=== PATIENT | male | born 1960 | race Caucasian/White ===

== ENCOUNTER 2016-11-07 12:11 | Inpatient (IN) | payer OTHER, MEDICAID ==
[2016-11-07 12:43] LABS: % IMMATURE GRANULOCYTES 0.6 % (0.0-1.1); ABSOLUTE IMMATURE GRANULOCYTES 0.09 10^3/uL (0-0.10); HEMOGLOBIN 13.5 g/dL (13.7-17.5); MEAN CELL HEMOGLOBIN 28.7 pg (27.9-34.1); MEAN CELL HEMOGLOBIN CONC. 32.9 g/dL (32.4-36.7); MEAN CELL VOLUME 87.2 fL (81.5-99.8); MEAN PLATELET VOLUME 9.7 fL (8.7-11.7); RED BLOOD CELL COUNT 4.7 10^6/uL (4.40-6.38); RED CELL DISTRIBUTION WIDTH 13.3 % (11.5-15.2)
[2016-11-07 13:09] LABS: ALANINE AMINOTRANSFERASE 120 IU/L (21-72); ALBUMIN 2.9 g/dL (3.5-5.0); ALKALINE PHOSPHATASE 319 IU/L (38-126); ANION GAP 13 mEq/L (8-16); ASPARTATE AMINOTRANSFERASE 74 IU/L (17-59); BILIRUBIN,TOTAL 4.7 mg/dL (0.1-1.4); CALCIUM 8.6 mg/dL (8.5-10.4); CARBON DIOXIDE 26 mEq/l (22-31); CHLORIDE 93 mEq/L (97-110); CREATININE 0.6 mg/dL (0.7-1.3); GLOMERULAR FILTRATION RATE > 60; GLUCOSE 190 mg/dL (70-100); POTASSIUM 4.4 mEq/L (3.5-5.2); SODIUM 132 mEq/L (134-144)
[2016-11-07 13:16] LABS: BILIRUBIN-CONJUGATED 4.1 mg/dL (0.0-0.5); BILIRUBIN-UNCONJUGATED 0.6 mg/dL (0.0-1.1)
[2016-11-07] MEDS ORDERED: ACETAMINOPHEN 325 MG TAB PO PRN (14:05)
[2016-11-07] MEDS ORDERED: ALBUTEROL 3 ML DEYVIAL IH PRN (14:05)
[2016-11-07] MEDS ORDERED: POLYETHYLENE GLYCOL 3350 17 GM PKT PO PRN (14:08)
[2016-11-07] MEDS ORDERED: BISACODYL 10 MG SUPP PR PRN (14:08)
[2016-11-07] MEDS ORDERED: LACTULOSE 20 GM/30 ML UDCUP PO PRN (14:08)
[2016-11-07] MEDS ORDERED: NICOTINE POLACRILEX 2 MG GUM B PRN (14:09)
[2016-11-07] MEDS: oxyCODONE IR 5 MG TAB PO PRN ×3 (14:57→21:20)
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
--- NOTE | 2016-11-07 15:19 | GCON ---
[f rep st] CONSULTATION ONCOLOGY INITIAL VISIT REASON FOR CONSULTATION: Widely metastatic carcinoma of unknown primary, probably upper GI source. HISTORY OF PRESENT ILLNESS: Mr. Jalloh is a 56-year-old gentleman, who was recently diagnosed with an adenocarcinoma from a biopsy on a left supraclavicular lymph node. He has significant omental invol vement, as well as roxana hepatis adenopathy and several nodes in the liver, the largest at 5 cm. He was being set up to start palliative chemotherapy next week when he came into the office with at kaylynas t a 24 hour history of vomiting. While in the office, he was also found to have an elevated alk phos and total bilirubin. He complains of significant abdominal pain. Last emesis was earlier today. H e states it has been about 7-8 hours since his last pain medication and is very uncomfortable. He al so states "I want to get started on treatment so this cancer can be cured and I can get out of here." PAST MEDICAL HISTORY: He is allergic to sulfa. Medications at home include Percocet, Duragesic 25 m cg per hour patch, Senokot, MiraLAX, Protonix, NicoDerm 14 mg, calcium, and acetaminophen as needed. Chronic illnesses include the cancer as described in HPI, otherwise unremarkable. SURGICAL HISTORY: He had a lymph node biopsy. FAMILY HISTORY: No primary family members have history of cancer. SOCIAL HISTORY: He was smoking a pack a day up until his diagnosis last month. He denies alcohol us e. He was not working and essentially homeless, living in a van. REVIEW OF SYSTEMS: Ten-point review of systems performed, pertinent positives per HPI, otherwise neg ative. PHYSICAL EXAM: VITAL SIGNS: Temperature is 36.3, pulse is 96, blood pressure is 144/81. GENERAL: He is a mildly jaundiced man, who is somewhat angry and frustrated because he had not had any pain me dication yet. He will answer a few questions, but is not very verbose. HEENT: Sclerae are mildly i cteric. Oral mucosa is more moist. He did receive a liter of fluids in the office. LUNGS: Clear. CARDIAC: Regular. ABDOMEN: Mildly distended, soft but tender diffusely, particularly in the right upper quadrant. There is a firmness within the abdomen that is palpable. NEURO: Unremarkable. LABS: Mild anemia at 13.5, but white count and platelet count are unremarkable. His chemistries a c ouple weeks ago showed normal LFTs. Today, his bilirubin is up to 4.7. AST and ALT are 74 and 120, and alk phos is up to 319 from 79. He had a previous CEA, CA 19-9, and PSA and AFP, all of which wer e normal. IMPRESSION: 1. Widely metastatic carcinoma of unknown primary, possibly gastrointestinal source. 2. Biliary outlet obstruction. 3. Nausea and vomiting. RECOMMENDATIONS: I agree with starting hydration and pain control, and getting an ultrasound of his liver to see if there is something that can be easily fixed. If he significantly improves over the n ext couple days, we could consider initiating chemotherapy to see if he can get some palliation. I e xplained to him that his cancer was NOT curable. I explained to him that the best we can do with rosa atment is to slow the growth of cancer, perhaps shrink it a little bit, and give him some pain relief which also may help him live a little bit longer. At this point, he did not really want to walk muc h about the cancer. I will follow along with you while he is in the hospital and will continue to have these discussions. It would not be unreasonable to get a Palliative Care consult while he is here. /[id number]/MODL
[2016-11-07] MEDS: fentaNYL 25 MCG PATCH TD SCH (15:35)
[2016-11-07] MEDS: NICOTINE 14 MG/24 HR PATCH TD SCH (15:36)
--- NOTE | 2016-11-07 15:42 | DX ---
Acute Abdominal Series November 07, 2016, at 3:02 p.m. Clinical History: 56-year-old male with metastatic adenocarcinoma of unknown primary, complaining of epigastric abdominal pain and some distention. Comparison Studies: CT imaging of the abdomen and pelvis and chest radiography, dated October 26. Findings: Upright PA View of the Chest: The patient's head is slightly tilted to the right, likely explaining t he positioning of the trachea. The cardiomediastinal silhouette is normal in size. There is some mild central perihilar bronchial wall thickening, and the lungs are hyperexpanded, which may reflect unde rlying COPD. There has been development of some diskoid subsegmental atelectasis at the right lung ba se. There is a right-sided PICC line, which terminates at the right subclavian/innominate junction. T here is no pleural effusion, peripheral interstitial edema, or pneumothorax. Abdomen (Four Views): There is air and fecal material in the ascending, transverse, descending, and r ectosigmoid portions of the colon. There may be some mild haustral thickening associated with portion s of the transverse colon. There is no free air or apparent organomegaly. A mild biphasic thoracolumb ar curvature is seen. There is a small oval-shaped calcific opacity projected over the right of midli ne at the sacrococcygeal junction, not apparent on the previous CT scan, perhaps representing an lashae sted pill (although otherwise nonspecific). Impression: 1. Moderate constipation/obstipation. A mild degree of associated haustral inflammatory thickening is suspected. 2. Diskoid subsegmental atelectasis at the right lung base.
[2016-11-07 16:34] LABS: COLOR AMBER; LEUKOCYTE ESTERASE,URINE 1+ (NEGATIVE); NITRITE,URINE NEGATIVE (NEGATIVE)
[2016-11-07 16:41] LABS: MUCUS 3+ /lpf (NONE-1+); WBC,URINE 25-50 /hpf (0-3)
[2016-11-07] MEDS: HYDROmorphONE/DILAUDID 1 MG/ML SYR IVP PRN (17:11)
--- NOTE | 2016-11-07 18:32 | US ---
Right Upper Quadrant Sonogram (Limited Abdominal) Clinical Indications: New elevated liver function tests, known metastatic hepatic and portacaval and portal ena disease from colon cancer Comparison: CT October 26, 2016 Findings: There is new mild intrahepatic biliary dilatation in the right lobe of the liver. There ap pears to be sludge in the common duct which is at the upper limits of normal and measures 7 mm. We co uld not define the portacaval ena mass due to the patient's large size and bowel gas. The patient's left hepatic lobe liver metastasis is little if at all changed since the prior CT, measuring 6 x 4.8 cm compared to prior 5 x 4.3 cm. No new liver metastases are identified. There is a new ascites. The right kidney is nonobstructed. The portal vein and hepatic veins remain patent. Impression: 1. New intrahepatic biliary dilatation with sludge in the common duct. My suspicion is t hat this is related to extrinsic compression from the patient's portacaval and portal adenopathy. Thi s patient might benefit from ERCP with common ductal stent placement. 2. New ascites of undetermined etiology.
[2016-11-07] MEDS: ONDANSETRON DISINTEGRATING 4 MG TAB PO PRN (20:29)
[2016-11-07] MEDS: PANTOPRAZOLE SODIUM 40 MG TAB PO SCH (21:20)
[2016-11-07] MEDS: SENNOSIDES/DOCUSATE SODIUM TAB PO SCH (21:20)
[2016-11-07] MEDS ORDERED: CALCIUM CARBONATE 500 MG CHEWABLE TAB PO PRN (22:36)
[2016-11-08] MEDS: oxyCODONE IR 5 MG TAB PO PRN ×8 (00:52→20:53)
[2016-11-08 05:31] LABS: % IMMATURE GRANULYOCYTES 0.6 % (0.0-1.1); ABSOLUTE IMMATURE GRANULOCYTES 0.08 10^3/uL (0.00-0.10); ADD DIFF? NO; ADD MORPH? NO; ADD SCAN? NO; ATYPICAL LYMPHOCYTE FLAG 10 (0-99); FRAGMENT RBC FLAG 0 (0-99); HEMATOCRIT 37.2 % (40.0-51.0); HEMOGLOBIN 12.4 g/dL (13.7-17.5); LEFT SHIFT FLG 0 (0-99); LIPEMIA HEMOLYSIS FLAG 80 (0-99); MEAN CELL HEMOGLOBIN 28.6 pg (27.9-34.1); MEAN CELL HEMOGLOBIN CONCENTR. 33.3 g/dL (32.4-36.7); MEAN CELL VOLUME 85.9 fL (81.5-99.8); MEAN PLATELET VOLUME 9.7 fL (8.7-11.7); PLATELET CLUMPS FLAG 10 (0-99); PLATELET COUNT 361 10^3/uL (150-400); RED BLOOD CELL COUNT 4.33 10^6/uL (4.40-6.38); RED CELL DISTRIBUTION WIDTH 13.4 % (11.5-15.2)
[2016-11-08 06:05] LABS: CALCIUM 8.1 mg/dL (8.5-10.4); CARBON DIOXIDE 29 mEq/l (22-31); CHLORIDE 95 mEq/L (97-110); CREATININE 0.5 mg/dL (0.7-1.3); GLOMERULAR FILTRATION RATE > 60; GLUCOSE 103 mg/dL (70-100); MAGNESIUM 1.9 mg/dL (1.6-2.3); SODIUM 130 mEq/L (134-144)
[2016-11-08 06:11] LABS: ANION GAP 6 mEq/L (8-16); POTASSIUM 4.6 mEq/L (3.5-5.2)
[2016-11-08] MEDS: PANTOPRAZOLE SODIUM 40 MG TAB PO SCH ×2 (10:31→20:55)
[2016-11-08] MEDS: SENNOSIDES/DOCUSATE SODIUM TAB PO SCH ×2 (10:31→20:55)
[2016-11-08] MEDS: ENOXAPARIN 40 MG/0.4 ML SYR SC SCH (10:32)
[2016-11-08] MEDS: NICOTINE 14 MG/24 HR PATCH TD SCH (10:32)
[2016-11-08 10:43] LABS: ALBUMIN 2.5 g/dL (3.5-5.0); BILIRUBIN,TOTAL 4.8 mg/dL (0.1-1.4); BILIRUBIN-CONJUGATED 4.1 mg/dL (0.0-0.5); BILIRUBIN-UNCONJUGATED 0.7 mg/dL (0.0-1.1); TOTAL PROTEIN 5.3 g/dL (6.3-8.2)
[2016-11-08] MEDS ORDERED: MAGNESIUM HYDROXIDE 30 ML UDCUP PO PRN (11:11)
[2016-11-08] MEDS: ONDANSETRON 4 MG/2 ML VIAL IVP PRN (11:33)
--- NOTE | 2016-11-08 13:49 | SOAPPROG ---
SOAP Progress Note Assessment/Plan: E&M for carcinomatosis * Metastatic carcinomatosis probably upper GI source: unable to start chemo with liver obstruction; chemo not curative and patient isn't sure he wants to go that route. * Elevated bili and alk phos: biliary obs most likely due to milly-portal lymphadenopathy related to cancer; only able to alleviate with either drain or stent. * Disposition: recommended palliative care consult. Patient is a borderline candidate for chemotherapy which will be palliative at best. His cancer is aggressive so may be best to pursue a comfort measure only approach. Objective: Vital Signs Temp Pulse Resp BP Pulse Ox 36.7 C 78 18 142/85 H 93 11/08/16 05:59 11/08/16 08:00 11/08/16 08:00 11/08/16 08:00 11/08/16 08:00 Laboratory Results 11/08/16 05:21 11/08/16 05:21 11/07/16 11/08/16 11/09/16 05:59 05:59 05:59 Intake Total 3050 Output Total 700 Balance 2350 Laboratory Tests 11/07/16 11/08/16 12:33 05:21 Total Bilirubin 4.7 H 4.8 H Alkaline Phosphatase 319 H 300 H Right Upper Quadrant Sonogram (Limited Abdominal) Impression: 1. New intrahepatic biliary dilatation with sludge in the common duct. My suspicion is that this is related to extrinsic compression from the patient's portacaval and portal adenopathy. This patient might benefit from ERCP with common ductal stent placement. 2. New ascites of undetermined etiology. Dictated By: Juan Jose Longoria MD Physical Exam - Physical Exam General Appearance: no apparent distress EENT: scleral icterus (R), scleral icterus (L) Abdomen: No non-tender ICD10 Worksheet Patient Problems: Problems Problem Status Diagnosed Abdominal pain Acute Carcinomatosis Acute
--- NOTE | 2016-11-08 16:03 | HOSPPROG ---
Hospitalist Progress Note Assessment/Plan: 56 yo M with recent diagnosis of poorly differentiated adenocarcinoma of unknown primary presenting with biliary obstruction and abominal pain # biliary obstruction: due to external compression from cancer mets and LAD, discussed with patient whether he would like to pursue aggressive mgmt that would include biliary stent, as next, he is not sure at this time. Monitoring LFTs for now. Consider ERCP and stenting but not urgent at this point # metastatic adenocarcinoma: with unknown primary but likely upper GI source, could not do chemo at this time given above. Options are for chemo and ercp as above versus hospice care, discussed at length with patient. Unclear what he wants to do at this point, he wants to discuss with diabetes clinical manager or lumber loader. palliative involved, will get spiritual care involved. # abdominal pain: due to diffuse metastatic disease, also has ascites contributing, continue pain meds as needed # szad: patient intermittently fairly agitated and confrontational, prn ativan/ haldol # hyponatremia: ? hypervolemic hyponatremia in setting of ascites etc # dispo: IP status, will need > 48 hours given complicated decision making Reviewed care plan with palliative care, GI, oncology, CM. Subjective: no significant overnight events, patient still with pain, moderately controlled on current regimen, intermittently agitated Objective: Vital Signs Temp Pulse Resp BP Pulse Ox 36.7 C 78 18 142/85 H 93 11/08/16 05:59 11/08/16 08:00 11/08/16 08:00 11/08/16 08:00 11/08/16 08:00 Laboratory Results 11/08/16 05:21 11/08/16 05:21 11/07/16 11/08/16 11/09/16 05:59 05:59 05:59 Intake Total 3050 Output Total 700 Balance 2350 awake alert nad anicteric op clear rrr no mrg cta b distended, ttp diffusely, + bs no cc ble edema warm dry well perfused oriented intermittently agitated - Time Spent With Patient Time Spent with Patient: greater than 35 minutes Time Spent with Patient: Greater than 35 minutes spent on this patients care, greater than 50% of time spent counseling, educating, and coordinating care regarding the above mentioned plan. ICD10 Worksheet Patient Problems: Problems Problem Status Diagnosed Abdominal pain Acute Carcinomatosis Acute
[2016-11-08] MEDS: LORazepam 2 MG/ML INJ IVP PRN (20:56)
[2016-11-08] MEDS: NS 1,000 ML IV SCH (20:56)
[2016-11-09] MEDS: oxyCODONE IR 5 MG TAB PO PRN ×5 (00:08→20:55)
[2016-11-09] MEDS: NS 1,000 ML IV SCH ×3 (04:32→20:56)
[2016-11-09 05:05] LABS: % IMMATURE GRANULYOCYTES 0.6 % (0.0-1.1); ABSOLUTE IMMATURE GRANULOCYTES 0.09 10^3/uL (0.00-0.10); ADD DIFF? NO; ADD MORPH? NO; ADD SCAN? NO; ATYPICAL LYMPHOCYTE FLAG 0 (0-99); FRAGMENT RBC FLAG 0 (0-99); HEMATOCRIT 37.4 % (40.0-51.0); HEMOGLOBIN 12.4 g/dL (13.7-17.5); LEFT SHIFT FLG 0 (0-99); LIPEMIA HEMOLYSIS FLAG 80 (0-99); MEAN CELL HEMOGLOBIN 28.8 pg (27.9-34.1); MEAN CELL HEMOGLOBIN CONCENTR. 33.2 g/dL (32.4-36.7); MEAN CELL VOLUME 86.8 fL (81.5-99.8); MEAN PLATELET VOLUME 9.8 fL (8.7-11.7); PLATELET CLUMPS FLAG 0 (0-99); PLATELET COUNT 379 10^3/uL (150-400); RED BLOOD CELL COUNT 4.31 10^6/uL (4.40-6.38); RED CELL DISTRIBUTION WIDTH 13.7 % (11.5-15.2)
[2016-11-09 05:32] LABS: ALANINE AMINOTRANSFERASE 83 IU/L (21-72); ALBUMIN 2.4 g/dL (3.5-5.0); ALKALINE PHOSPHATASE 299 IU/L (38-126); ANION GAP 9 mEq/L (8-16); ASPARTATE AMINOTRANSFERASE 67 IU/L (17-59); BILIRUBIN,TOTAL 6.4 mg/dL (0.1-1.4); CALCIUM 8.4 mg/dL (8.5-10.4); CARBON DIOXIDE 26 mEq/l (22-31); CHLORIDE 96 mEq/L (97-110); CREATININE 0.5 mg/dL (0.7-1.3); GLOMERULAR FILTRATION RATE > 60; GLUCOSE 105 mg/dL (70-100); POTASSIUM 4.4 mEq/L (3.5-5.2); SODIUM 131 mEq/L (134-144); TOTAL PROTEIN 5.3 g/dL (6.3-8.2)
[2016-11-09 05:39] LABS: BILIRUBIN-CONJUGATED 5.4 mg/dL (0.0-0.5)
[2016-11-09] MEDS: NICOTINE 14 MG/24 HR PATCH TD SCH (09:56)
[2016-11-09] MEDS: ASPIRIN EC 81 MG TAB PO SCH (09:59)
[2016-11-09] MEDS: ASCORBIC ACID 500 MG TAB PO SCH (09:59)
[2016-11-09] MEDS: PANTOPRAZOLE SODIUM 40 MG TAB PO SCH ×2 (09:59→20:55)
[2016-11-09] MEDS: SENNOSIDES/DOCUSATE SODIUM TAB PO SCH ×2 (09:59→20:56)
[2016-11-09] MEDS: ENOXAPARIN 40 MG/0.4 ML SYR SC SCH (10:00)
[2016-11-09] MEDS ORDERED: OLANZapine DISINTEGR 5 MG TAB PO ONE (10:48)
--- NOTE | 2016-11-09 13:57 | SOAPPROG ---
SOAP Progress Note Assessment/Plan: Assessment: E&M for carcinomatosis * Metastatic carcinomatosis probably upper GI source: unable to start chemo with liver obstruction; chemo not curative and patient isn't sure he wants to go that route. * Elevated bili and alk phos: biliary obs most likely due to milly-portal lymphadenopathy related to cancer; only able to alleviate with either drain or stent. * Disposition: recommended palliative care consult. Patient is a borderline candidate for chemotherapy which will be palliative at best. His cancer is aggressive so may be best to pursue a comfort measure only approach. Plan:Again discussed situation with pt, he is tangential and remains undecided about his preferred course of action 11/09/16 13:56 Objective: Vital Signs Temp Pulse Resp BP Pulse Ox 98.6 F 87 18 141/77 H 92 11/09/16 08:22 11/09/16 08:22 11/09/16 08:22 11/09/16 08:22 11/09/16 08:22 Laboratory Results 11/09/16 04:42 11/09/16 04:42 11/08/16 11/09/16 11/10/16 05:59 05:59 05:59 Intake Total 3050 2700 Output Total 700 700 Balance 2350 1999 ICD10 Worksheet Patient Problems: Problems Problem Status Diagnosed Abdominal pain Acute Carcinomatosis Acute
--- NOTE | 2016-11-09 14:11 | HOSPPROG ---
Hospitalist Progress Note Assessment/Plan: 56 yo M with recent diagnosis of poorly differentiated adenocarcinoma of unknown primary presenting with biliary obstruction and abominal pain # biliary obstruction: due to external compression from cancer mets and LAD, discussed with patient whether he would like to pursue aggressive mgmt that would include biliary stent, as next, LFTs continue to increase. At this time, unclear if he would like to pursue aggressive mgmt and stenting etc, holding off at this time. # metastatic adenocarcinoma: with unknown primary but likely upper GI source, could not do chemo at this time given above. Again, unclear if biliary stent and chemo versus hospice. Patient discussing with his family and chaplains. # abdominal pain: due to diffuse metastatic disease, also has ascites contributing, continue pain meds as needed # szad: patient intermittently fairly agitated and confrontational, prn ativan/ haldol # hyponatremia: ? hypervolemic hyponatremia in setting of ascites etc # dispo: IP status, will need > 48 hours given complicated decision making Reviewed care plan with Chemical Handler--apparently patient has a fixed delusion that he has a daughter and wants to reach her. He is talking about "getting right with God" in the time that he has left. Subjective: no significant overnight events, patient again asking to see a disassembler, pain is under better control Objective: Vital Signs Temp Pulse Resp BP Pulse Ox 37 C 87 18 141/77 H 92 11/09/16 08:22 11/09/16 08:22 11/09/16 08:22 11/09/16 08:22 11/09/16 08:22 Laboratory Results 11/09/16 04:42 11/09/16 04:42 11/08/16 11/09/16 11/10/16 05:59 05:59 05:59 Intake Total 3050 2700 Output Total 700 700 Balance 2350 2000 awake alert nad anicteric op clear rrr no mrg cta b distended, ttp diffusely, + bs no cc ble edema warm dry well perfused oriented intermittently agitated ICD10 Worksheet Patient Problems: Problems Problem Status Diagnosed Abdominal pain Acute Carcinomatosis Acute
[2016-11-09] MEDS ORDERED: OLANZapine DISINTEGR 5 MG TAB ONE (16:30)
[2016-11-09] MEDS: LORazepam 2 MG/ML INJ IVP PRN (22:47)
[2016-11-10] MEDS: NS 1,000 ML IV SCH ×2 (03:49→20:26)
[2016-11-10] MEDS: oxyCODONE IR 5 MG TAB PO PRN ×4 (03:49→23:47)
[2016-11-10] MEDS: HYDROmorphONE/DILAUDID 1 MG/ML SYR IVP PRN (10:55)
[2016-11-10] MEDS: SENNOSIDES/DOCUSATE SODIUM TAB PO SCH ×2 (11:12→20:26)
[2016-11-10] MEDS: LORazepam 2 MG/ML INJ IVP PRN ×3 (11:12→20:27)
[2016-11-10] MEDS: ASCORBIC ACID 500 MG TAB PO SCH ×2 (11:13→11:30)
[2016-11-10] MEDS: PANTOPRAZOLE SODIUM 40 MG TAB PO SCH ×2 (11:14→20:26)
[2016-11-10] MEDS: ASPIRIN EC 81 MG TAB PO SCH (11:21)
[2016-11-10] MEDS: ENOXAPARIN 40 MG/0.4 ML SYR SC SCH (11:23)
[2016-11-10] MEDS: NICOTINE 14 MG/24 HR PATCH TD SCH (11:24)
--- NOTE | 2016-11-10 12:04 | SOAPPROG ---
SOMATTEO Progress Note Assessment/Plan: Assessment: E&M for carcinomatosis * Metastatic carcinomatosis probably upper GI source: unable to start chemo with liver obstruction; chemo not curative and patient isn't sure he wants to go that route.Increasing abdominal distension probably from ascites * Elevated bili and alk phos: biliary obs most likely due to milly-portal lymphadenopathy related to cancer; only able to alleviate with either drain or stent. * Disposition: recommended palliative care consult. Patient is a borderline candidate for chemotherapy which will be palliative at best. His cancer is aggressive so may be best to pursue a comfort measure only approach. Plan:Again discussed situation with pt, he is tangential and remains undecided about his preferred course of action. His abdomen is uncomfortable and will check u/s and do therapeutic para if indicated. Will d/c okaes at his request 11/09/16 13:56 11/10/16 12:00 Subjective: C/O increasing abdominal distension Objective: Vital Signs Temp Pulse Resp BP Pulse Ox 98.6 F 85 16 129/69 H 92 11/10/16 08:23 11/10/16 08:23 11/10/16 08:23 11/10/16 08:23 11/10/16 08:23 Microbiology 11/07/16 16:37 Urine Culture - Final Urine,Clean Catch Five Or More [place] Types Laboratory Results 11/09/16 04:42 11/09/16 04:42 11/09/16 11/10/16 11/11/16 05:59 05:59 05:59 Intake Total 2700 4227 Output Total 700 750 Balance 1999 3477 Physical Exam - Physical Exam General Appearance: mild distress Respiratory: lungs clear Cardiac/Chest: regular rate, rhythm Abdomen: ascites ICD10 Worksheet Patient Problems: Problems Problem Status Diagnosed Abdominal pain Acute Carcinomatosis Acute
[2016-11-10] MEDS ORDERED: LIDOCAINE 1% 30 ML SDV ONE (13:15)
[2016-11-10] MEDS ORDERED: NA BICARBONATE 50 MEQ/50 ML VIAL ONE (13:16)
--- NOTE | 2016-11-10 13:38 | HOSPPROG ---
Hospitalist Progress Note Assessment/Plan: 56 yo M with recent diagnosis of poorly differentiated adenocarcinoma of unknown primary presenting with biliary obstruction and abominal pain # biliary obstruction: due to external compression from cancer mets and LAD. Case reviewed with Dr. Sanabria. Unfortunately this man has a aggressive cancer and chemotherapy would be palliative at best. The patient himself is unclear whether he wants to pursue treatment at this time. * Palliative care consult * Palliative paracentesis * Will need to pursue patient competency given his likely schizophrenia and ability to make appropriate healthcare decisions for himself. * Will get ethics consult this week. # metastatic adenocarcinoma: with unknown primary but likely upper GI source, could not do chemo at this time given above. Again, unclear if biliary stent and chemo versus hospice. Patient discussing with his family and chaplains. # abdominal pain: due to diffuse metastatic disease, also has ascites contributing, continue pain meds as needed * Paracentesis * Pain control # schizoaffective disorder: Patient often times not appropriate and has delusions involving a and children who do not exist. This is a long- standing delusion per family. It is unclear whether he is competent to make his decisions at this time. * Ethics consult # hyponatremia: Will follow, mild # dispo: IP status, will need > 48 hours given complicated decision making Subjective: [place] reviewed discussed with Dr. Sanabria. Very sleepy complaining of abdominal pain Objective: Vital Signs Temp Pulse Resp BP Pulse Ox 37.0 C 85 16 129/69 H 92 11/10/16 08:23 11/10/16 08:23 11/10/16 08:23 11/10/16 08:23 11/10/16 08:23 Microbiology 11/07/16 16:37 Urine Culture - Final Urine,Clean Catch Five Or More [place] Types 11/09/16 11/10/16 11/11/16 05:59 05:59 05:59 Intake Total 2700 4227 Output Total 700 750 Balance 1999 3477 - Physical Exam Constitutional: chronically ill appearing, uncomfortable Eyes: icteric sclera Ears, Nose, Mouth, Throat: dry mucous membranes Cardiovascular: regular rate and rhythym Respiratory: no respiratory distress, no rales or rhonchi, clear to auscultation Gastrointestinal: ascites, distension, No normoactive bowel sounds (Decrease) Genitourinary: no bladder fullness Skin: warm, No normal color Musculoskeletal: no joint effusions Neurologic: No AAOx3 Psychiatric: flat affect, poor judgement, No thought process linear ICD10 Worksheet Patient Problems: Problems Problem Status Diagnosed Abdominal pain Acute Carcinomatosis Acute
[2016-11-10 13:41] LABS: % IMMATURE GRANULYOCYTES 0.6 % (0.0-1.1); ADD DIFF? NO; ADD MORPH? NO; ADD SCAN? NO; ATYPICAL LYMPHOCYTE FLAG 0 (0-99); FRAGMENT RBC FLAG 0 (0-99); HEMATOCRIT 39.5 % (40.0-51.0); HEMOGLOBIN 13.2 g/dL (13.7-17.5); LEFT SHIFT FLG 0 (0-99); LIPEMIA HEMOLYSIS FLAG 80 (0-99); MEAN CELL HEMOGLOBIN 28.8 pg (27.9-34.1); MEAN CELL HEMOGLOBIN CONCENTR. 33.4 g/dL (32.4-36.7); MEAN CELL VOLUME 86.2 fL (81.5-99.8); MEAN PLATELET VOLUME 9.8 fL (8.7-11.7); PLATELET CLUMPS FLAG 0 (0-99); PLATELET COUNT 445 10^3/uL (150-400); RED BLOOD CELL COUNT 4.58 10^6/uL (4.40-6.38); RED CELL DISTRIBUTION WIDTH 14.1 % (11.5-15.2)
[2016-11-10 13:44] LABS: APTT 23.7 SEC (23.0-38.0); INR 1.14 (0.83-1.16); PROTIME(PATIENT) 14.5 SEC (12.0-15.0)
[2016-11-10 14:14] LABS: ALANINE AMINOTRANSFERASE 75 IU/L (21-72); ALBUMIN 2.5 g/dL (3.5-5.0); ALKALINE PHOSPHATASE 347 IU/L (38-126); ANION GAP 10 mEq/L (8-16); ASPARTATE AMINOTRANSFERASE 84 IU/L (17-59); BILIRUBIN,TOTAL 7.6 mg/dL (0.1-1.4); CALCIUM 8.5 mg/dL (8.5-10.4); CARBON DIOXIDE 26 mEq/l (22-31); CHLORIDE 98 mEq/L (97-110); CREATININE 0.5 mg/dL (0.7-1.3); GLOMERULAR FILTRATION RATE > 60; GLUCOSE 122 mg/dL (70-100); POTASSIUM 4.8 mEq/L (3.5-5.2); SODIUM 134 mEq/L (134-144); TOTAL PROTEIN 5.6 g/dL (6.3-8.2)
[2016-11-10 14:21] LABS: BILIRUBIN-CONJUGATED 6.5 mg/dL (0.0-0.5); BILIRUBIN-UNCONJUGATED 1.1 mg/dL (0.0-1.1)
--- NOTE | 2016-11-10 16:06 | US ---
Ultrasound-Guided Abdominal Paracentesis History: Metastatic colon cancer. Abdominal discomfort. Consent: Risks and benefits of the procedure were discussed in detail. Informed consent was obtained . Technique: The right side of the abdomen was prepped and draped in sterile fashion after sonographic localization of largest focus of ascites. 1% Xylocaine was used for local anesthetic. After a skin ni ck with a scalpel, a 6-[place] multi-sidehole pigtail drainage tube was inserted in trocar fashion int o the abdominal cavity. 5.4 liters of turbid greenish-brown fluid were evacuated. 1.1 liters were sen t to the laboratory for multiple tests. Sterile dressing was applied. The patient tolerated the proce dure well and was returned to his room in stable condition. Findings: Large amount of ascites is evacuated. Impression: Ultrasound-guided abdominal paracentesis of 5.4 liters of turbid fluid. - - - - - - - - - - - - - - - - - - - - - - - - - - - - - - - - - - - - - - - - - - - - (PQRS Measures: Current medications were listed in the medical record, including all known prescript ions, [id number] medications, herbal medications, and nutritional supplements. Tobacco Use: Non e. Prophylactic antibiotic: Unnecessary. VTE prophylaxis: Unnecessary .) IR Call
[2016-11-10] MEDS: fentaNYL 25 MCG PATCH TD SCH (16:32)
[2016-11-10 16:40] LABS: BODY FLUID CELL COUNT PERITONEAL FLUID; BODY FLUID GLUCOSE PERITONEAL FLUID
[2016-11-10 17:38] LABS: GLUCOSE, PERITONEAL FLUID 64 mg/dL (55-113)
[2016-11-11] MEDS: oxyCODONE IR 5 MG TAB PO PRN ×3 (05:33→19:45)
[2016-11-11 05:58] LABS: % IMMATURE GRANULYOCYTES 0.8 % (0.0-1.1); ABSOLUTE IMMATURE GRANULOCYTES 0.12 10^3/uL (0.00-0.10); ADD DIFF? NO; ADD MORPH? NO; ADD SCAN? NO; ATYPICAL LYMPHOCYTE FLAG 0 (0-99); FRAGMENT RBC FLAG 0 (0-99); HEMATOCRIT 38.2 % (40.0-51.0); HEMOGLOBIN 12.8 g/dL (13.7-17.5); LEFT SHIFT FLG 0 (0-99); LIPEMIA HEMOLYSIS FLAG 80 (0-99); MEAN CELL HEMOGLOBIN 28.8 pg (27.9-34.1); MEAN CELL HEMOGLOBIN CONCENTR. 33.5 g/dL (32.4-36.7); MEAN CELL VOLUME 85.8 fL (81.5-99.8); MEAN PLATELET VOLUME 9.9 fL (8.7-11.7); PLATELET CLUMPS FLAG 10 (0-99); PLATELET COUNT 417 10^3/uL (150-400); RED BLOOD CELL COUNT 4.45 10^6/uL (4.40-6.38); RED CELL DISTRIBUTION WIDTH 14.4 % (11.5-15.2)
[2016-11-11 06:06] LABS: ALANINE AMINOTRANSFERASE 65 IU/L (21-72); ALBUMIN 2.2 g/dL (3.5-5.0); ALKALINE PHOSPHATASE 290 IU/L (38-126); ANION GAP 5 mEq/L (8-16); ASPARTATE AMINOTRANSFERASE 82 IU/L (17-59); BILIRUBIN,TOTAL 6.8 mg/dL (0.1-1.4); CALCIUM 7.8 mg/dL (8.5-10.4); CARBON DIOXIDE 26 mEq/l (22-31); CHLORIDE 99 mEq/L (97-110); CREATININE 0.5 mg/dL (0.7-1.3); GLOMERULAR FILTRATION RATE > 60; GLUCOSE 103 mg/dL (70-100); POTASSIUM 4.6 mEq/L (3.5-5.2); SODIUM 130 mEq/L (134-144); TOTAL PROTEIN 4.8 g/dL (6.3-8.2)
[2016-11-11 06:13] LABS: BILIRUBIN-CONJUGATED 5.8 mg/dL (0.0-0.5)
[2016-11-11] MEDS: PANTOPRAZOLE SODIUM 40 MG TAB PO SCH ×2 (09:47→20:31)
[2016-11-11] MEDS: ASCORBIC ACID 500 MG TAB PO SCH (09:47)
[2016-11-11] MEDS: SENNOSIDES/DOCUSATE SODIUM TAB PO SCH ×2 (09:47→20:30)
[2016-11-11] MEDS: ASPIRIN EC 81 MG TAB PO SCH (09:48)
[2016-11-11] MEDS: ENOXAPARIN 40 MG/0.4 ML SYR SC SCH (09:48)
[2016-11-11] MEDS: NICOTINE 14 MG/24 HR PATCH TD SCH (10:05)
--- NOTE | 2016-11-11 12:15 | HOSPPROG ---
Hospitalist Progress Note Assessment/Plan: 56 yo M with recent diagnosis of poorly differentiated adenocarcinoma of unknown primary presenting with biliary obstruction and abominal pain # biliary obstruction: due to external compression from cancer mets and LAD. Unfortunately this man has a aggressive cancer and chemotherapy would be palliative at best. The patient himself is unclear whether he wants to pursue treatment at this time. * Palliative care consult * Palliative paracentesis * Will need to pursue patient competency given his likely schizophrenia and ability to make appropriate healthcare decisions for himself. * Will get ethics consult this week. # SBP: Pt with high neutrophil count in ascites (<250). Will treat for 7 days. * Watch for clinical improvement (decreased pain and WBC), if no improvement will retap and if WBC in ascites still high would need to change antibiotics and consider ct to look for perf. # metastatic adenocarcinoma: with unknown primary but likely upper GI source, could not do chemo at this time given above. Again, unclear if biliary stent and chemo versus hospice. Patient discussing with his family and chaplains. # abdominal pain: due to diffuse metastatic disease, also has ascites contributing, continue pain meds as needed * Paracentesis * Pain control # schizoaffective disorder: Patient often times not appropriate and has delusions involving a and children who do not exist. This is a long- standing delusion per family. It is unclear whether he is competent to make his decisions at this time. * Ethics consult # hyponatremia: Will follow, mild # dispo: IP status, will need > 48 hours given complicated decision making Subjective: More alert today. Complains of ongoing abdominal pain but seems better today. Wants take his medications Objective: Vital Signs Temp Pulse Resp BP Pulse Ox 36.9 C 93 18 141/93 H 90 L 11/11/16 09:35 11/11/16 09:35 11/11/16 09:35 11/11/16 09:35 11/11/16 09:42 Microbiology 11/10/16 10:56 Gram Stain - Final Peritoneal Fluid - Aspirate Laboratory Results 11/11/16 05:30 11/11/16 05:30 11/10/16 11/11/16 11/12/16 05:59 05:59 05:59 Intake Total 4227 2350 500 Output Total 750 6750 300 Balance 3477 -4400 200 PT 14.5 SEC (12.0-15.0) 11/10/16 13:24 INR 1.14 (0.83-1.16) 11/10/16 13:24 - Physical Exam Constitutional: chronically ill appearing, uncomfortable Eyes: PERRL Ears, Nose, Mouth, Throat: moist mucous membranes Cardiovascular: regular rate and rhythym, no murmur, rub, or gallop Respiratory: no respiratory distress, no rales or rhonchi, reduced air movement Gastrointestinal: normoactive bowel sounds, tenderness (Lower abdomen), distension Genitourinary: No oakes in urethra Skin: warm, No normal color Musculoskeletal: no joint effusions Neurologic: No AAOx3 Psychiatric: poor insight, other (Delusional), No thought process linear ICD10 Worksheet Patient Problems: Problems Problem Status Diagnosed Abdominal pain Acute Carcinomatosis Acute
--- NOTE | 2016-11-11 14:49 | SOAPPROG ---
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 2.) Ascites cell count to suggest SBP- has been started on IV antibiotic therapy x 7 days. 3.) Obstructive jaundice due to disease involvement at [place]. 4.) Palliative care planning: With poor prognosis disease, peritonitis, and obstructive jaundice, the options for beneficial treatment are quite limited. It would be best to approach this from placement with palliative care planning, as is feasible given his Mental Health Dx/ sx. Plan: 1.) Work up and Tx noted. 2.) Our service will follow intermittently. 11/11/16 14:44 Subjective: More comfortable after large volume paracentesis yesterday. No new sx. Objective: As noted here, VSS,afebrile Pt lying flat in bed with NC oxygen in NAD. Mildly icteric and jaundiced. No oral thrush. Ascites is (+). Vital Signs Temp Pulse Resp BP Pulse Ox 36.9 C 93 18 141/93 H 90 L 11/11/16 09:35 11/11/16 09:35 11/11/16 09:35 11/11/16 09:35 11/11/16 09:42 Microbiology 11/10/16 10:56 Gram Stain - Final Peritoneal Fluid - Aspirate Laboratory Results 11/11/16 05:30 11/11/16 05:30 11/10/16 11/11/16 11/12/16 05:59 05:59 05:59 Intake Total 4227 2350 500 Output Total 750 6750 300 Balance 3477 -4400 200 PT 14.5 SEC (12.0-15.0) 11/10/16 13:24 INR 1.14 (0.83-1.16) 11/10/16 13:24 ICD10 Worksheet Patient Problems: Problems Problem Status Diagnosed Abdominal pain Acute Carcinomatosis Acute
[2016-11-11] MEDS: NS 1,000 ML IV SCH (18:01)
[2016-11-11] MEDS: LORazepam 2 MG/ML INJ IVP PRN (19:46)
[2016-11-11] MEDS: HALOPERIDOL LACT 5 MG/ML INJ IVP PRN (20:30)
[2016-11-11] MEDS: HYDROmorphONE/DILAUDID 1 MG/ML SYR IVP PRN (20:31)
[2016-11-12] MEDS: NS 1,000 ML IV SCH ×2 (00:25→20:09)
[2016-11-12] MEDS: HYDROmorphONE/DILAUDID 1 MG/ML SYR IVP PRN ×5 (00:30→18:30)
[2016-11-12] MEDS: ONDANSETRON 4 MG/2 ML VIAL IVP PRN (00:30)
[2016-11-12] MEDS: oxyCODONE IR 5 MG TAB PO PRN ×3 (00:35→20:14)
--- NOTE | 2016-11-12 09:22 | SOAPPROG ---
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 2.) Ascites cell count to suggest SBP- has been started on IV antibiotic therapy x 7 days. 3.) Obstructive jaundice due to disease involvement at [place]. 4.) Palliative care planning: With poor prognosis disease, peritonitis, and obstructive jaundice, the options for beneficial treatment are quite limited. It would be best to approach this from placement with palliative care planning, as is feasible given his Mental Health Dx/ sx. Suggest: Placement of temporary, indwelling peritoneal catheter to allow bedside, prn drainage of ascites for palliative sx. relieving purposes. D/W Dr. Aguilar this AM. Consider Hospice consult with perhaps Hospice follow up for end of life care either back at [facility] or at another facility. Pt. was previously homeless and living in his vehicle. Plan: 1.) Work up and Tx noted. 2.) Our service will follow intermittently. 3.) Planning for end of life care, without systemic intervention. No active cancer Tx. planned/intended. 11/12/16 09:17 Subjective: Feels uncomfortable from re-accumulating ascites/ SBP sx. No emesis. Objective: VSS, afebrile, as noted here HEENT- no oral lesions, mildly icteric Neck- supple Chest- clear ant. CVS- RSR, no extra HS ABD- BS+, tight with ascites on exam. No rebound EXT- skin intact, chronic increased pigmentation LLE Labs - 11/11/16 noted here: Vital Signs Temp Pulse Resp BP Pulse Ox 36.8 C 88 18 137/70 H 91 L 11/12/16 07:54 11/12/16 07:54 11/12/16 07:54 11/12/16 07:54 11/12/16 07:54 Microbiology 11/10/16 10:56 Gram Stain - Final Peritoneal Fluid - Aspirate Laboratory Results 11/11/16 05:30 11/11/16 05:30 11/11/16 11/12/16 11/13/16 05:59 05:59 05:59 Intake Total 2350 2400 Output Total 6750 725 150 Balance -4400 1675 -150 PT 14.5 SEC (12.0-15.0) 11/10/16 13:24 INR 1.14 (0.83-1.16) 11/10/16 13:24 ICD10 Worksheet Patient Problems: Problems Problem Status Diagnosed Abdominal pain Acute Carcinomatosis Acute
[2016-11-12] MEDS: HALOPERIDOL LACT 5 MG/ML INJ IVP PRN (09:40)
[2016-11-12] MEDS: ASCORBIC ACID 500 MG TAB PO SCH (09:41)
[2016-11-12] MEDS: ASPIRIN EC 81 MG TAB PO SCH (09:41)
[2016-11-12] MEDS: ENOXAPARIN 40 MG/0.4 ML SYR SC SCH (09:41)
[2016-11-12] MEDS: SENNOSIDES/DOCUSATE SODIUM TAB PO SCH ×2 (09:41→20:14)
[2016-11-12] MEDS: PANTOPRAZOLE SODIUM 40 MG TAB PO SCH ×2 (09:42→20:14)
[2016-11-12] MEDS: MAGNESIUM HYDROXIDE 30 ML UDCUP PO PRN (09:42)
[2016-11-12] MEDS: NICOTINE 14 MG/24 HR PATCH TD SCH (09:42)
[2016-11-12] MEDS ORDERED: ALBUMIN 25% 100 ML IV ONE (12:25)
--- NOTE | 2016-11-12 12:30 | HOSPPROG ---
Hospitalist Progress Note Assessment/Plan: 56 yo M with recent diagnosis of poorly differentiated adenocarcinoma of unknown primary presenting with biliary obstruction and abominal pain. He has metastatic abdominal cancer this, discussed with Dr. Thomas who concur that his best option at this time is comfort care only without any further chemotherapy to be offered. We will try to make him as comfortable as possible as most of his discomfort is from the massive ascites in his abdomen # biliary obstruction: due to external compression from cancer mets and LAD. Unfortunately this man has a aggressive cancer and chemotherapy would be palliative at best. Palliative care with transition to hospice after transition to long-term and long-term care * Palliative care consult reviewed, they discussed code status and he agrees with DNR and wants comfort only. * Hospice will meet with patient. # SBP: Pt with high neutrophil count in ascites (<250). Will treat for 7 days. * Repeat paracentesis and will check cell count looking for decreased WBCs if this is still elevated would need to adjust antibiotic therapy for patient. * Follow abdominal exam if he continues to reaccumulate ascites quickly would consider drain to be used as needed for comfort this would need to be placed after treatment for his SBP * Left mssg with Dr. Schmitz who is on for IR this week. # metastatic adenocarcinoma: with unknown primary but likely upper GI source, could not do chemo at this time given above. Again, unclear if biliary stent and chemo versus hospice. Patient discussing with his family and chaplains. # abdominal pain: due to diffuse metastatic disease, also has ascites contributing, continue pain meds as needed * Paracentesis * Pain control # schizoaffective disorder: Patient often times not appropriate and has delusions involving a and children who do not exist. This is a long- standing delusion per family. It is unclear whether he is competent to make his decisions at this time. * Ethics consult # hyponatremia: Will follow, mild # dispo: IP status, will need > 48 hours given complicated decision making. Plan is for Mr. Jalloh to go to [facility] after his SBP is treated and his ascites is stable. He will go on palliative care. BM will work on medicaid status and convert him to correction care and hospice after he has medicaid. His Brother (who is MDPOA when he is not lucid) will be in town on Friday and would appreciate a call if he is discharged prior to that. Subjective: Angry today, once his bili drained feels like he can't eat with this much ascites Objective: Vital Signs Temp Pulse Resp BP Pulse Ox 36.8 C 88 18 137/70 H 91 L 11/12/16 07:54 11/12/16 07:54 11/12/16 07:54 11/12/16 07:54 11/12/16 07:54 Microbiology 11/10/16 10:56 Gram Stain - Final Peritoneal Fluid - Aspirate Laboratory Results 11/11/16 05:30 11/11/16 05:30 11/11/16 11/12/16 11/13/16 05:59 05:59 05:59 Intake Total 2350 2400 Output Total 6750 725 150 Balance -4400 1675 -150 PT 14.5 SEC (12.0-15.0) 11/10/16 13:24 INR 1.14 (0.83-1.16) 11/10/16 13:24 - Physical Exam Constitutional: no apparent distress Eyes: PERRL Ears, Nose, Mouth, Throat: moist mucous membranes Cardiovascular: regular rate and rhythym, no murmur, rub, or gallop Respiratory: no respiratory distress, reduced air movement Gastrointestinal: ascites Psychiatric: agitated ICD10 Worksheet Patient Problems: Problems Problem Status Diagnosed Abdominal pain Acute Carcinomatosis Acute
--- NOTE | 2016-11-12 14:45 | PDPCPN ---
Palliative Care Progress Note Assessment/Plan: Referring provider: Dr Archer Reason for consult: Complex medical decision making Symptom control HPI: Jose Jalloh is a 56 yo male with PMH adenocarcinoma with likely GI origin admitted from [facility] for increased abdominal pain and nausea/vomiting. Recent dx of adenocarcinoma at OSH with discharge to [facility] for rehab. On admission found to have some liver failure from biliary obstruction and SBP being treated with antibiotics. Oncology consulted but due to aggressive cancer and poor performance status no systematic treatment available. Planning for paracentesis and hopefuly mirza drain placement for control of symptoms. Palliative care consulted for complex medical decision making. Spoke with Jose who stated his biggest concern was being in pain. He wants to be comfortable and as pain free as possible. We reviewed code status and he feels allowing for a natural with no pain is what he would want. He is ok with returning back to [facility] under comfort care. Called brother Irwin over the phone. He agrees with DNR and comfort care only back at [facility] when medically ready. He stated his spoke with Jose separately and Jose stated to him that he wanted comfort care only and DNR. He is planning on coming out from [place] on Friday. He would like to be called anytime with any updates. Assessment: Physical: - Pain: abdominal pain - on fentanyl 25 mcg/hr- might consider increasing to 37 mcg/hr - oxy PRN or dilaudid IV PRN - can consider NSAIDS to help with inflammatory pain - would avoid steroids as can induce psychosis -Nausea: at times - can consider zyprexa for continued nausea to help with agitation as well - constipation - at risk with opiates - continue senna with colace PRN - dulcolax supp daily PRN Emotional/psychological: hx of mental health problems life long per family - haldol PRN - zyprexa as above if needed Advanced Care Planning: Is patient decisional?: At times yes Code Status: DNR- confirmed today with patient and brother MD DELANEY: has an uncle and brother involved who are able to be proxy Plan: Return back to [facility] with "comfort care" when ready. Subjective: I'm still in pain Objective: Social: Never with no children per family. Brother, mother, and uncle live in [place] and are all involved. Medication list reviewed ROS: General: fatigue, weakness ENT: negative Resp: negative GI: abdominal pain and bloating, nausea : negative MS: negative Skin: negative Neuro: negative Psych: hallucinations Functional assessment: PPS: 50% Functional status: independent with most ADLs Vital Signs Temp Pulse Resp BP Pulse Ox 36.8 C 88 18 137/70 H 91 L 11/12/16 07:54 11/12/16 07:54 11/12/16 07:54 11/12/16 07:54 11/12/16 07:54 Microbiology 11/10/16 10:56 Gram Stain - Final Peritoneal Fluid - Aspirate Laboratory Results 11/11/16 05:30 11/11/16 05:30 11/11/16 11/12/16 11/13/16 05:59 05:59 05:59 Intake Total 2350 2400 Output Total 6750 725 150 Balance -4400 1675 -150 PT 14.5 SEC (12.0-15.0) 11/10/16 13:24 INR 1.14 (0.83-1.16) 11/10/16 13:24 Physical Exam - Physical Exam General Appearance: alert, no apparent distress Respiratory: No respiratory distress, No accessory muscle use Abdomen: distended Skin: warm/dry, jaundice Extremities: pedal edema (mild) Neuro/Psych: alert, oriented x 3 ICD10 Worksheet Patient Problems: Problems Problem Status Diagnosed Abdominal pain Acute Carcinomatosis Acute
[2016-11-12] MEDS ORDERED: NA BICARBONATE 50 MEQ/50 ML VIAL ONE (15:16)
[2016-11-12] MEDS ORDERED: ALBUMIN 25% 100 ML SOLN IV ONE (15:31)
[2016-11-12] MEDS: PROMETHAZINE HCL 25 MG/ML VIAL IVP PRN (15:49)
--- NOTE | 2016-11-12 18:29 | US ---
Ultrasound-Guided Therapeutic and Diagnostic Paracentesis - November 12, 2016 Indication: Ascites. Metastatic colon cancer. Crosscutting Measure #226: Current tobacco user: No. Consent: After the risks, benefits and alternatives of ultrasound-guided paracentesis were explained to the patient and all questions were answered, witnessed informed consent was obtained for ultrasou nd-guided paracentesis. Procedure: A preprocedural ultrasound was performed to identify the largest pocket of ascites in the right lower quadrant. The skin was marked, cleaned with ChloraPrep solution, and numbed with 1% lidoc cordelia with bicarbonate. A 6 [employer] catheter was advanced under ultrasound guidance into the as cites. The needle was removed. Catheter was left in place while 5000 mL of straw-colored ascites was removed. The catheter was removed at the end of the procedure. Patient tolerated the procedure well without immediate complications. Impression: 1. Successful ultrasound-guided paracentesis. 2. 5000 mL was removed. 3. Specimen submitted to the Lab.
[2016-11-12 18:36] LABS: BODY FLUID CELL COUNT PERITONEAL FLUID
[2016-11-12] MEDS: LORazepam 2 MG/ML INJ IVP PRN (20:12)
[2016-11-13] MEDS: oxyCODONE IR 5 MG TAB PO PRN ×5 (02:08→21:18)
[2016-11-13] MEDS: MAGNESIUM HYDROXIDE 30 ML UDCUP PO PRN (02:08)
[2016-11-13] MEDS: NS 1,000 ML IV SCH ×3 (05:19→23:34)
[2016-11-13] MEDS: ENOXAPARIN 40 MG/0.4 ML SYR SC SCH (10:14)
[2016-11-13] MEDS: PANTOPRAZOLE SODIUM 40 MG TAB PO SCH ×2 (10:15→21:02)
[2016-11-13] MEDS: HALOPERIDOL LACT 5 MG/ML INJ IVP PRN ×2 (10:15→21:05)
[2016-11-13] MEDS: NICOTINE 14 MG/24 HR PATCH TD SCH (10:15)
[2016-11-13] MEDS: ASPIRIN EC 81 MG TAB PO SCH (10:15)
[2016-11-13] MEDS: ASCORBIC ACID 500 MG TAB PO SCH (10:17)
[2016-11-13] MEDS: SENNOSIDES/DOCUSATE SODIUM TAB PO SCH ×2 (10:41→21:02)
[2016-11-13 11:09] LABS: INR 1.22 (0.83-1.16); PROTIME(PATIENT) 15.4 SEC (12.0-15.0)
[2016-11-13 11:34] LABS: ADD DIFF? NO; ADD MORPH? NO; ADD SCAN? NO; ATYPICAL LYMPHOCYTE FLAG 0 (0-99); FRAGMENT RBC FLAG 0 (0-99); HEMATOCRIT 41.5 % (40.0-51.0); LEFT SHIFT FLG 0 (0-99); LIPEMIA HEMOLYSIS FLAG 80 (0-99); MEAN CELL HEMOGLOBIN 28.7 pg (27.9-34.1); MEAN CELL HEMOGLOBIN CONCENTR. 33.7 g/dL (32.4-36.7); MEAN CELL VOLUME 85.2 fL (81.5-99.8); PLATELET CLUMPS FLAG 10 (0-99); PLATELET COUNT 476 10^3/uL (150-400); RED BLOOD CELL COUNT 4.87 10^6/uL (4.40-6.38); RED CELL DISTRIBUTION WIDTH 15.1 % (11.5-15.2)
[2016-11-13 11:41] LABS: ALANINE AMINOTRANSFERASE 89 IU/L (21-72); ALBUMIN 2.5 g/dL (3.5-5.0); ALKALINE PHOSPHATASE 458 IU/L (38-126); ANION GAP 8 mEq/L (8-16); ASPARTATE AMINOTRANSFERASE 170 IU/L (17-59); BILIRUBIN,TOTAL 9.9 mg/dL (0.1-1.4); CALCIUM 8.3 mg/dL (8.5-10.4); CARBON DIOXIDE 23 mEq/l (22-31); CHLORIDE 96 mEq/L (97-110); CREATININE 0.5 mg/dL (0.7-1.3); GLOMERULAR FILTRATION RATE > 60; GLUCOSE 151 mg/dL (70-100); POTASSIUM 4.8 mEq/L (3.5-5.2); SODIUM 127 mEq/L (134-144); TOTAL PROTEIN 5.4 g/dL (6.3-8.2)
[2016-11-13] MEDS: HYDROmorphONE/DILAUDID 1 MG/ML SYR IVP PRN ×4 (13:06→23:28)
[2016-11-13] MEDS: fentaNYL 25 MCG PATCH TD SCH (13:55)
[2016-11-13 14:06] LABS: BILIRUBIN-CONJUGATED 8.5 mg/dL (0.0-0.5); BILIRUBIN-UNCONJUGATED 1.4 mg/dL (0.0-1.1)
[2016-11-13] MEDS: PROMETHAZINE HCL 25 MG/ML VIAL IVP PRN ×2 (14:20→19:31)
[2016-11-13] MEDS ORDERED: fentaNYL 25 MCG PATCH TD SCH ×2 (14:30)
[2016-11-13] MEDS ORDERED: fentaNYL 12 MCG PATCH TD SCH (14:30)
--- NOTE | 2016-11-13 18:31 | HOSPPROG ---
Hospitalist Progress Note Assessment/Plan: Assessment: 56 yo M presents with acute abdominal pain secondary to acute biliary obstruction and spontaneous bacterial peritonitis in the setting of poorly differentiated adenocarcinoma of unknown primary Plan: # biliary obstruction: Acute, due to external compression from cancer mets and LAD. Unfortunately this man has a aggressive cancer and chemotherapy would be palliative at best. -hospice care to be arranged at [facility], will be do not hospitalize -pain control as needed, increase fentanyl patch -appreciate ongoing palliative care assistance # acute SBP: Pt with high neutrophil count in ascites (>250), abdominal pain -repeat paracentesis demonstrates higher neutrophil predominance but with lower overall white blood cell count -given the patient's serum white blood cell is increasing, will adjust his antibiotics from ceftriaxone to Zosyn -repeat CBC tomorrow to gauge whether patient's white blood cell count is down trending -will recommend a total of 7 days antibiotics from this antibiotic adjustment -patient will require a full course of antibiotics prior to placement of palliative drain -will discuss with Interventional Radiology scheduling an outpatient drain placement next week and ongoing IV antibiotics in the interim -will most likely require PICC line and antibiotics long-term facility # metastatic adenocarcinoma: with unknown primary but likely upper GI source, could not do chemo at this time given above -per palliative Care consultation, the patient is MPOA agrees that hospice is most in line with the patient's goals of care and the patient will return to [facility] with comfort care once a effective antibiotic treatment plan has been developed # chronic pain with continuous opiate dependency: Secondary to SBP, biliary obstruction, intra-abdominal malignancy -up titrated fentanyl patch to 37.5 mcg, continue breakthrough pain medications # schizoaffective disorder: Patient often times not appropriate and has delusions involving a and children who do not exist. This is a long- standing delusion per family. It is unclear whether he is competent to make his decisions at this time. -brother is MPOA and will be arriving in [place] on 11/18/2016 # hyponatremia: acute, most likely secondary to renal hypoperfusion in the setting of ascites and conditions outlined above -will hold on adjusting diuretics -continue to monitor Diet. Regular Prophylaxis. High risk patient, Lovenox 40 Code. Do not resuscitate, confirmed with MPOA during palliative consultation Disposition. Anticipated discharge is 11/14/16, pending ability to safely treat his SBP with Zosyn, requiring additional 24 hours of monitoring to ensure that this will be effective treatment strategy. Subjective: Patient is furious that he is not receiving oatmeal Objective: Vital Signs Temp Pulse Resp BP Pulse Ox 36.9 C 94 16 123/64 H 89 L 11/13/16 16:57 11/13/16 16:57 11/13/16 16:57 11/13/16 16:57 11/13/16 16:57 Microbiology 11/10/16 10:56 Gram Stain - Final Peritoneal Fluid - Aspirate Laboratory Results 11/13/16 10:39 11/13/16 10:39 11/12/16 11/13/16 11/14/16 05:59 05:59 05:59 Intake Total 2400 3300 Output Total 725 1150 Balance 1675 2150 PT 15.4 SEC (12.0-15.0) H 11/13/16 10:39 INR 1.22 (0.83-1.16) H 11/13/16 10:39 - Physical Exam Constitutional: no apparent distress, not in pain, chronically ill appearing, uncomfortable Cardiovascular: regular rate and rhythym, no murmur, rub, or gallop, edema ( Trace bilateral lower extremities) Respiratory: no respiratory distress, no rales or rhonchi, clear to auscultation Gastrointestinal: normoactive bowel sounds, ascites, distension (Mildly), No tenderness, No guarding Skin: warm, no rashes or abrasions, no fluctuance, no induration, other ( Petechial lesions bilateral lower extremity) Psychiatric: flat affect, other (Withdrawn) ICD10 Worksheet Patient Problems: Problems Problem Status Diagnosed Abdominal pain Acute Carcinomatosis Acute
[2016-11-13] MEDS ORDERED: PIPERACILLIN/TAZO 4.5 GM/DEX 100 ML IV SCH (19:00)
[2016-11-13] MEDS: PIPERACILLIN NA/TAZO 4.5 GM in D5W 100 ML IV SCH ×2 (19:51→23:34)
[2016-11-13] MEDS: LORazepam 2 MG/ML INJ IVP PRN (23:28)
[2016-11-14] MEDS: oxyCODONE IR 5 MG TAB PO PRN ×4 (01:42→20:33)
[2016-11-14] MEDS: PANTOPRAZOLE SODIUM 40 MG TAB PO SCH ×4 (01:43→20:34)
[2016-11-14] MEDS: SENNOSIDES/DOCUSATE SODIUM TAB PO SCH ×3 (01:43→20:34)
[2016-11-14] MEDS: HYDROmorphONE/DILAUDID 1 MG/ML SYR IVP PRN ×2 (04:47→23:44)
[2016-11-14] MEDS: PIPERACILLIN NA/TAZO 4.5 GM in D5W 100 ML IV SCH ×4 (05:44→23:44)
[2016-11-14 08:13] LABS: % IMMATURE GRANULYOCYTES 1.3 % (0.0-1.1); ADD DIFF? NO; ADD MORPH? NO; ADD SCAN? NO; ATYPICAL LYMPHOCYTE FLAG 0 (0-99); FRAGMENT RBC FLAG 0 (0-99); HEMATOCRIT 39.2 % (40.0-51.0); HEMOGLOBIN 13.4 g/dL (13.7-17.5); LEFT SHIFT FLG 10 (0-99); LIPEMIA HEMOLYSIS FLAG 90 (0-99); MEAN CELL HEMOGLOBIN 28.8 pg (27.9-34.1); MEAN CELL HEMOGLOBIN CONCENTR. 34.2 g/dL (32.4-36.7); MEAN CELL VOLUME 84.1 fL (81.5-99.8); MEAN PLATELET VOLUME 9.7 fL (8.7-11.7); PLATELET CLUMPS FLAG 20 (0-99); PLATELET COUNT 483 10^3/uL (150-400); RED BLOOD CELL COUNT 4.66 10^6/uL (4.40-6.38); RED CELL DISTRIBUTION WIDTH 15.6 % (11.5-15.2)
[2016-11-14 08:48] LABS: ALANINE AMINOTRANSFERASE 105 IU/L (21-72); ALKALINE PHOSPHATASE 531 IU/L (38-126); ANION GAP 8 mEq/L (8-16); ASPARTATE AMINOTRANSFERASE 215 IU/L (17-59); BILIRUBIN,TOTAL 10.7 mg/dL (0.1-1.4); CALCIUM 7.9 mg/dL (8.5-10.4); CARBON DIOXIDE 24 mEq/l (22-31); CHLORIDE 97 mEq/L (97-110); CREATININE 0.6 mg/dL (0.7-1.3); GLOMERULAR FILTRATION RATE > 60; GLUCOSE 118 mg/dL (70-100); POTASSIUM 4.9 mEq/L (3.5-5.2); SODIUM 129 mEq/L (134-144)
[2016-11-14 08:55] LABS: BILIRUBIN-CONJUGATED 9.5 mg/dL (0.0-0.5); BILIRUBIN-UNCONJUGATED 1.2 mg/dL (0.0-1.1)
[2016-11-14] MEDS: PROMETHAZINE HCL 25 MG/ML VIAL IVP PRN (09:14)
[2016-11-14] MEDS: NICOTINE 14 MG/24 HR PATCH TD SCH (09:14)
[2016-11-14] MEDS: fentaNYL 25 MCG PATCH TD SCH (09:14)
[2016-11-14] MEDS: MAGNESIUM HYDROXIDE 30 ML UDCUP PO PRN ×2 (09:15→20:33)
[2016-11-14] MEDS: ASCORBIC ACID 500 MG TAB PO SCH (09:15)
[2016-11-14] MEDS: LORazepam 2 MG/ML INJ IVP PRN ×2 (09:15→20:28)
[2016-11-14] MEDS: ASPIRIN EC 81 MG TAB PO SCH (09:15)
[2016-11-14] MEDS: ENOXAPARIN 40 MG/0.4 ML SYR SC SCH (09:16)
[2016-11-14] MEDS: fentaNYL 12 MCG PATCH TD SCH (12:18)
[2016-11-14] MEDS: ONDANSETRON 4 MG/2 ML VIAL IVP PRN (14:37)
--- NOTE | 2016-11-14 17:21 | HOSPPROG ---
Hospitalist Progress Note Assessment/Plan: Assessment: 56 yo M presents with acute abdominal pain secondary to acute biliary obstruction and spontaneous bacterial peritonitis in the setting of poorly differentiated adenocarcinoma of unknown primary Plan: # biliary obstruction: Acute, due to external compression from cancer mets and LAD. Unfortunately this man has a aggressive cancer and chemotherapy would be palliative at best. -hospice care to be arranged at [facility] (likely after indwelling palliative drain placed) will be palliative at until that time, will be do not hospitalize -pain control as needed, increased fentanyl patch -appreciate ongoing palliative care assistance # acute SBP: Pt with high neutrophil count in ascites (>250), abdominal pain -repeat paracentesis demonstrated higher neutrophil predominance but with lower overall white blood cell count -given the patient's serum white blood cell is increasing, adjusted his antibiotics from ceftriaxone to Zosyn (D#11/09) -repeat CBC tomorrow to gauge whether patient's white blood cell count is down trending -will recommend a total of 7 days antibiotics from this antibiotic adjustment -patient will require a full course of antibiotics prior to placement of palliative drain -d/w Dr. Miranda, plan will be to DC to on 7 days of ABx w/ palliative care, then have a planned, scheduled indwelling para catheter placed as outpatient, and then have him go back to w/ hospice vs. care center # metastatic adenocarcinoma: with unknown primary but likely upper GI source, could not do chemo at this time given above -per palliative Care consultation, the patient is [facility] agrees that hospice is most in line with the patient's goals of care and the patient will return to [facility] with comfort care once a effective antibiotic treatment plan has been developed # chronic pain with continuous opiate dependency: Secondary to SBP, biliary obstruction, intra-abdominal malignancy -up titrated fentanyl patch to 37.5 mcg, continue breakthrough pain medications # schizoaffective disorder: Patient often times not appropriate and has delusions involving a and children who do not exist. This is a long- standing delusion per family. It is unclear whether he is competent to make his decisions at this time. -brother is MPOA and will be arriving in [place] on 11/18/2016 # hyponatremia: acute, most likely secondary to renal hypoperfusion in the setting of ascites and conditions outlined above -will hold on adjusting diuretics -continue to monitor # sirs: acute, new problem, further w/u indicated. Tachycardia + worsening leukocytosis, unclear whether this is 2/2 volume issue vs. worsening infxn - broadened Abx (Zosyn) - get BCx - get EKG to r/o Afib - hold on IVF given active hypervolemia # cirrhosis: chronic, worsening liver panel - monitor liver panel - start 20mg PO lasix given worsening edema - monitor strict I/O, weights - lactulose enema/PO - hold on further abd imaging outside of [place] which demonstrated no e/o cholecystitis but rather intrahepatic biliary congestion Diet. Regular Prophylaxis. High risk patient, Lovenox 40 Code. Do not resuscitate, confirmed with MPOA during palliative consultation Disposition. Anticipated discharge is 11/15/16, pending ability to safely treat his SBP with Zosyn, requiring additional 24 hours of monitoring to ensure that this will be effective treatment strategy. Subjective: feeling constipation, sweaty Objective: Vital Signs Temp Pulse Resp BP Pulse Ox 36.6 C 125 H 17 140/93 H 90 L 11/14/16 16:40 11/14/16 16:40 11/14/16 16:40 11/14/16 16:40 11/14/16 16:40 Microbiology 11/10/16 10:56 Gram Stain - Final Peritoneal Fluid - Aspirate Body Fluid Culture - Final Laboratory Results 11/14/16 08:01 11/14/16 08:01 11/13/16 11/14/16 11/15/16 05:59 05:59 05:59 Intake Total 3300 6650 700 Output Total 1150 780 200 Balance 2150 5870 500 PT 15.4 SEC (12.0-15.0) H 11/13/16 10:39 INR 1.22 (0.83-1.16) H 11/13/16 10:39 - Physical Exam Constitutional: not in pain, chronically ill appearing, obese, uncomfortable, No no apparent distress (Vomiting) Cardiovascular: tachycardia, edema (Trace bilateral lower extremities right greater than left), No systolic murmur, No irregularly irregular Respiratory: no respiratory distress, no rales or rhonchi, clear to auscultation Gastrointestinal: normoactive bowel sounds, ascites, distension (Moderate), No tenderness Skin: no fluctuance, no induration, other (Nonblanching petechiae bilateral lower extremities dense along the dorsal aspects of the feet), No erythema Neurologic: AAOx3, sensation intact bilaterally Psychiatric: thought process linear, flat affect, agitated, other ( Concentration 05/09) ICD10 Worksheet Patient Problems: Problems Problem Status Diagnosed Abdominal pain Acute Carcinomatosis Acute
[2016-11-14] MEDS ORDERED: LACTULOSE 200 GM in SODIUM CL IRRIG SOLUTION 700 ML PR PRN (17:22)
[2016-11-14] MEDS: FUROSEMIDE 40 MG TAB PO SCH (17:44)
[2016-11-14] MEDS: LACTULOSE 20 GM/30 ML UDCUP PO SCH (23:06)
[2016-11-15] MEDS: PROMETHAZINE HCL 25 MG/ML VIAL IVP PRN ×2 (02:36→12:00)
[2016-11-15] MEDS: oxyCODONE IR 5 MG TAB PO PRN ×2 (02:37→22:06)
[2016-11-15] MEDS: LORazepam 2 MG/ML INJ IVP PRN ×2 (03:41→22:06)
[2016-11-15] MEDS: PIPERACILLIN NA/TAZO 4.5 GM in D5W 100 ML IV SCH ×3 (05:07→19:09)
[2016-11-15] MEDS: ASCORBIC ACID 500 MG TAB PO SCH ×2 (11:08→17:05)
[2016-11-15] MEDS: ASPIRIN EC 81 MG TAB PO SCH ×2 (11:08→17:06)
[2016-11-15] MEDS: SENNOSIDES/DOCUSATE SODIUM TAB PO SCH ×3 (11:09→22:05)
[2016-11-15] MEDS: LACTULOSE 20 GM/30 ML UDCUP PO SCH ×3 (11:09→22:07)
[2016-11-15] MEDS: FUROSEMIDE 40 MG TAB PO SCH ×2 (11:09→17:06)
[2016-11-15] MEDS: PANTOPRAZOLE SODIUM 40 MG TAB PO SCH ×2 (11:09→22:05)
--- NOTE | 2016-11-15 11:10 | PDPCPN ---
Palliative Care Progress Note Assessment/Plan: HPI: Jose Jalloh is a 56 yo male with PMH adenocarcinoma with likely GI origin admitted from [facility] for increased abdominal pain and nausea/vomiting. Recent dx of adenocarcinoma at OSH with discharge to [facility] for rehab. On admission found to have some liver failure from biliary obstruction and SBP being treated with antibiotics. Oncology consulted but due to aggressive cancer and poor performance status no systematic treatment available. Planning for paracentesis and hopefuly mirza drain placement for control of symptoms. Palliative care consulted for complex medical decision making. Using oxycodone about 40mg daily, fentanyl patch increased yesterday. Vomiting overnight per RN Phenergan worked better then zofran to help control symptoms. Still anxious/agitated at times. Jose did not state any pain this morning just that he had to have a BM. Fatigued from ativan use early this morning but appeared comfortable and not in pain. Spoke with mother Soheila and updated her to condition. Assessment: Physical: - Pain: abdominal pain - on fentanyl 37 mcg/hr increased 11/14 - oxy PRN or dilaudid IV PRN - can consider NSAIDS to help with inflammatory pain - would avoid steroids as can induce psychosis -Nausea: zofran did not help, Phenergan helped more - scheduled zyprexa 5mg QHS to help with nausea - constipation - at risk with opiates - continue senna with colace PRN - dulcolax supp daily PRN Emotional/psychological: hx of mental health problems life long per family - haldol PRN - zyprexa as above Advanced Care Planning: Is patient decisional?: At times yes Code Status: DNR- confirmed today with patient and brother MD DELANEY: has an uncle and brother involved who are able to be proxy Plan: Return back to [facility] with "comfort care" when ready. Transition to hospice care with medicaid at . Subjective: I need to go number 2 Objective: Vital Signs Temp Pulse Resp BP Pulse Ox 36.7 C 90 88 H 150/92 H 98 11/15/16 08:00 11/15/16 08:00 11/15/16 08:00 11/15/16 08:00 11/15/16 03:57 Microbiology 11/10/16 10:56 Gram Stain - Final Peritoneal Fluid - Aspirate Body Fluid Culture - Final Laboratory Results 11/14/16 08:01 11/14/16 08:01 11/14/16 11/15/16 11/16/16 05:59 05:59 05:59 Intake Total 6650 1500 Output Total 780 2300 Balance 5870 -800 PT 15.4 SEC (12.0-15.0) H 11/13/16 10:39 INR 1.22 (0.83-1.16) H 11/13/16 10:39 Physical Exam - Physical Exam General Appearance: alert, no apparent distress Respiratory: No respiratory distress, No accessory muscle use Abdomen: distended (mild) Skin: warm/dry, jaundice Extremities: pedal edema (mild) Neuro/Psych: alert, other (fatigued) ICD10 Worksheet Patient Problems: Problems Problem Status Diagnosed Abdominal pain Acute Carcinomatosis Acute
[2016-11-15] MEDS: ENOXAPARIN 40 MG/0.4 ML SYR SC SCH (11:17)
[2016-11-15] MEDS: NICOTINE 14 MG/24 HR PATCH TD SCH (11:18)
[2016-11-15 13:01] LABS: ADD DIFF? YES; ADD MORPH? NO; ADD SCAN? NO; ATYPICAL LYMPHOCYTE FLAG 0 (0-99); FRAGMENT RBC FLAG 0 (0-99); HEMOGLOBIN 14.7 g/dL (13.7-17.5); LEFT SHIFT FLG 10 (0-99); LIPEMIA HEMOLYSIS FLAG 80 (0-99); MEAN CELL HEMOGLOBIN 28.1 pg (27.9-34.1); MEAN CELL HEMOGLOBIN CONCENTR. 33.4 g/dL (32.4-36.7); MEAN CELL VOLUME 84.1 fL (81.5-99.8); MEAN PLATELET VOLUME 9.8 fL (8.7-11.7); PLATELET CLUMPS FLAG 10 (0-99); PLATELET COUNT 561 10^3/uL (150-400); RED BLOOD CELL COUNT 5.23 10^6/uL (4.40-6.38); RED CELL DISTRIBUTION WIDTH 16.2 % (11.5-15.2)
[2016-11-15 13:06] LABS: INR 1.36 (0.83-1.16); PROTIME(PATIENT) 16.8 SEC (12.0-15.0)
[2016-11-15 13:07] LABS: APTT 23.3 SEC (23.0-38.0)
[2016-11-15 13:46] LABS: ALANINE AMINOTRANSFERASE 118 IU/L (21-72); ALBUMIN 2.4 g/dL (3.5-5.0); ALKALINE PHOSPHATASE 807 IU/L (38-126); ANION GAP 14 mEq/L (8-16); ASPARTATE AMINOTRANSFERASE 201 IU/L (17-59); BILIRUBIN,TOTAL 12.2 mg/dL (0.1-1.4); CALCIUM 8.6 mg/dL (8.5-10.4); CARBON DIOXIDE 22 mEq/l (22-31); CHLORIDE 96 mEq/L (97-110); CREATININE 0.8 mg/dL (0.7-1.3); GLOMERULAR FILTRATION RATE > 60; GLUCOSE 139 mg/dL (70-100); POTASSIUM 5.3 mEq/L (3.5-5.2); SODIUM 132 mEq/L (134-144); TOTAL PROTEIN 5.7 g/dL (6.3-8.2)
[2016-11-15] MEDS: ONDANSETRON 4 MG/2 ML VIAL IVP PRN (13:52)
[2016-11-15 13:53] LABS: BILIRUBIN-CONJUGATED 10.9 mg/dL (0.0-0.5); BILIRUBIN-UNCONJUGATED 1.3 mg/dL (0.0-1.1)
[2016-11-15 14:25] LABS: PLATELET ESTIMATE INCREASED (ADEQ)
[2016-11-15] MEDS: HYDROmorphONE/DILAUDID 1 MG/ML SYR IVP PRN (15:15)
[2016-11-15] MEDS ORDERED: NA BICARBONATE 50 MEQ/50 ML VIAL ONE (15:41)
[2016-11-15] MEDS ORDERED: LIDOCAINE 1% 30 ML SDV ONE (15:41)
--- NOTE | 2016-11-15 15:43 | HOSPPROG ---
Hospitalist Progress Note Assessment/Plan: INTERVAL SUMMARY & DAILY PROGRESS NOTE DATE OF ADMISSION: 11/07/2016 INTERVAL DIAGNOSES 1. Acute biliary obstruction 2. Acute spontaneous bacterial peritonitis 3. Metastatic adenocarcinoma 4. Chronic pain with continuous opiate dependency 5. Acute hyponatremia 6. Schizoaffective disorder 7. Systemic inflammatory response syndrome 8. Cirrhosis CONSULTATIONS Hospice PROCEDURES / IMAGING Paracentesis x3 CHIEF COMPLAINT Acute abdominal pain nausea vomiting SUBJECTIVE Patient continues to experience abdominal discomfort with nausea and vomiting HOSPITAL COURSE BY PROBLEM Mr. Jalloh was admitted for acute biliary obstruction and concomitant acute spontaneous bacterial peritonitis. Was initiated on IV ceftriaxone and given his underlying metastatic adenocarcinoma, hospice was consulted to help determine goals of care. It was decided by the patient's MPOA with the guidance of our hospice consultants that the patient would be transferred back to [facility] where he would receive palliative Care and goal directed towards comfort measures. That being said, the patient is currently being treated for SBP with IV antibiotics, and given that this is a potentially reversible condition, the patient is MPOA wanted this to be treated prior to inserting a palliative [place] drain. I discussed this with Interventional Radiology, and they recommended that we discharge the patient back to [facility] with 1 week of antibiotics and then have a scheduled palliative drain placed through IR and transition the patient back to [facility] with hospice thereafter. Over the past 48 hours, the patient's white blood cell count has been up trending, his abdominal symptoms have been worsening, and there are concerns that his intra-abdominal infection may be the stabilizing. His goals of care are no further invasive procedures outside of paracentesis, and his antibiotics have been broadened to Zosyn. Today the patient will undergo a therapeutic paracentesis as well as have diagnostic studies sent to determine whether his SBP remains active and/or worsening. He will also have an abdominal CT with IV contrast to determine whether there are any loculations which may be consistent with abscess. Our palliative care nurse has communicated patient's status to his family on the date of this dictation. The patient's brother and MPOA will be arriving in [place] on 11/18/2016. If patient has an abscess or worsening intra-abdominal pathology, then it would be appropriate to discuss w/ MPOA/hospice whether the inpatient hospice care center would be more appropriate for his symptom mgmt, given that no further intervention would like produce appreciable symptomatic relief. Assessment: 56 yo M presents with acute abdominal pain secondary to acute biliary obstruction and spontaneous bacterial peritonitis in the setting of poorly differentiated adenocarcinoma of unknown primary Plan: # biliary obstruction: Acute, due to external compression from cancer mets and LAD. Unfortunately this man has a aggressive cancer and chemotherapy would be palliative at best. -hospice care to be arranged at [facility] (likely after indwelling palliative drain placed), will be palliative at until that time, will be do not hospitalize -pain control as needed, increased fentanyl patch -appreciate ongoing palliative care assistance # acute SBP: Pt with high neutrophil count in ascites (>250), abdominal pain -repeat paracentesis today to determine whether SBP remains primary cause of abd symptoms -adjusted his antibiotics from ceftriaxone to Zosyn (D#12/10) -repeat CBC tomorrow to gauge whether patient's white blood cell count is down trending -will recommend a total of 7 days antibiotics from this antibiotic adjustment -patient will require a full course of antibiotics prior to placement of palliative drain -d/w Dr. Miranda, plan will be to DC to on 7 days of ABx w/ palliative care, then have a planned, scheduled indwelling para catheter placed as outpatient, and then have him go back to w/ hospice vs. care center # metastatic adenocarcinoma: with unknown primary but likely upper GI source, could not do chemo at this time given above -per palliative Care consultation, the patient is MPOA agrees that hospice is most in line with the patient's goals of care and the patient will return to [facility] with comfort care once a effective antibiotic treatment plan has been developed # chronic pain with continuous opiate dependency: Secondary to SBP, biliary obstruction, intra-abdominal malignancy -up titrated fentanyl patch to 37.5 mcg, continue breakthrough pain medications # schizoaffective disorder: Patient often times not appropriate and has delusions involving a and children who do not exist. This is a long- standing delusion per family. It is unclear whether he is competent to make his decisions at this time. -brother is MPOA and will be arriving in [place] on 11/18/2016 # hyponatremia: acute, most likely secondary to renal hypoperfusion in the setting of ascites and conditions outlined above -will hold on adjusting diuretics -continue to monitor # sirs: acute, new problem, further w/u indicated. Tachycardia + worsening leukocytosis, unclear whether this is 2/2 volume issue vs. worsening infxn - broadened Abx (Zosyn) - repeated BCx - patient declined EKG - hold on IVF given active hypervolemia - get CT abd/pel w/ IV contrast to eval for loculated effusion vs. abscess - if patient has an abscess or worsening intra-abdominal pathology, then it would be appropriate to discuss w/ MPOA/hospice whether the inpatient hospice care center would be more appropriate for his symptom mgmt, given that no further intervention would like produce appreciable symptomatic relief # cirrhosis: chronic, worsening liver panel - monitor liver panel - started 20mg PO lasix given worsening edema, net neg 800cc o/n - monitor strict I/O, weights - lactulose enema/PO - provide therapeutic para now # severe protein calorie malnutrition: evidenced by ASPEN criteria - ongoing dietary consultation - ensure Diet. Regular, as tutu Prophylaxis. High risk patient, Lovenox 40 Code. Do not resuscitate, confirmed with MPOA during palliative consultation Disposition. Anticipated discharge is 11/16/16 vs. 11/17/16, pending ability to safely treat his SBP with Zosyn, requiring additional 24 hours of monitoring to ensure that this will be effective treatment strategy. Subjective: Patient with ongoing abdominal discomfort nausea vomiting Objective: Vital Signs Temp Pulse Resp BP Pulse Ox 36.7 C 90 88 H 150/92 H 98 11/15/16 08:00 11/15/16 08:00 11/15/16 08:00 11/15/16 08:00 11/15/16 03:57 Microbiology 11/10/16 10:56 Gram Stain - Final Peritoneal Fluid - Aspirate Body Fluid Culture - Final Laboratory Results 11/15/16 12:45 11/15/16 12:45 11/14/16 11/15/16 11/16/16 05:59 05:59 05:59 Intake Total 6650 1500 Output Total 780 2300 Balance 5870 -800 PT 16.8 SEC (12.0-15.0) H 11/15/16 12:45 INR 1.36 (0.83-1.16) H 11/15/16 12:45 - Physical Exam Constitutional: chronically ill appearing, uncomfortable, No no apparent distress, No appears nourished, No not in pain Cardiovascular: tachycardia, edema (Trace bilateral lower extremity), No systolic murmur, No irregularly irregular Respiratory: inspiratory crackles (Bilateral bases), No reduced air movement, No expiratory wheeze, No bronchial breath sounds, No respiratory distress Gastrointestinal: normoactive bowel sounds, ascites, distension (Moderate), No tenderness, No guarding Skin: other (Nonblanching petechiae bilateral feet on the dorsal aspect) Neurologic: AAOx3, sensation intact bilaterally Psychiatric: not anxious, flat affect, agitated, other (Concentration 2/7) ICD10 Worksheet Patient Problems: Problems Problem Status Diagnosed Abdominal pain Acute Carcinomatosis Acute
[2016-11-15] MEDS ORDERED: ALBUMIN 25% 100 ML IV ONE (17:27)
--- NOTE | 2016-11-15 17:31 | US ---
Ultrasound-Guided Paracentesis Indication: Ascites. Crosscutting Measure #226 : Current tobacco user No. Consent: After the risks, benefits and alternatives of ultrasound-guided paracentesis were explained to the patient and all questions were answered, witnessed informed consent was obtained. Procedure: A preprocedural ultrasound was performed to identify the largest pocket of ascites in the right lower quadrant. A timeout was performed. The skin was marked, prepped and draped in the usual s terile fashion, and numbed with 1% lidocaine with bicarbonate. A 5 [employer] catheter was advanced under ultrasound guidance, using a sterile probe cover and sterile gel, into the ascites. The needle was removed and the catheter was left in place while 5000 mL of clear yellow ascites was removed. Th e patient requested that the procedure be terminated. The catheter was removed, hemostasis achieved, and a sterile dressing applied. The patient tolerated the procedure well without immediate complications. Impression: Ultrasound-guided paracentesis as above.
[2016-11-15] MEDS ORDERED: IOPAMIDOL (ISOVUE-300) 50 ML VIAL IV ONE (17:43)
[2016-11-15 18:20] LABS: GLUCOSE, PERITONEAL FLUID 24 mg/dL (55-113)
--- NOTE | 2016-11-15 18:56 | CT ---
CT Scan of the Abdomen and Pelvis (With Contrast) November 15, 2016 18:04 Indication: 56-year-old man with known metastatic colon cancer. Evaluate for abscess and perforation . Technique: No oral or rectal contrast. 90 mL of Isovue 300 were given intravenously by machine power injection. Multidetector helical CT imaging was performed from the diaphragm to the symphysis pubis . Dose reduction techniques were utilized. Patient scanned in the right lateral decubitus position. Comparison: CT abdomen pelvis October 26, 2016. Findings: No pneumoperitoneum, extraluminal gas or evidence of perforated viscus. Moderate volume of ascites is present throughout all 4 quadrant despite paracentesis performed shortl y prior to the procedure. A locule along the posterior wall of the stomach just anterior to the pancr eas measuring 3 x 4 cm on image 164 of series 4 is new is likely loculated ascites rather than absces s. No definite abscess throughout the peritoneal space. Questional enlarged low left axillary lymph n ode on image 1 of series 3. Extensive omental caking and confluent low-attenuation lymphadenopathy throughout the retroperitoneum , mesenteric root and roxana hepatis has minimally increased in volume. Moderate intrahepatic biliary dilation due to extrinsic compression on the common bile duct by the po rta hepatis lymphadenopathy is new since October 2016 and worse since November 07. The gallbladder is partially filled with dense material which may represent sludge or hemorrhage. The several low attenuation lesions in the left lobe of the liver are unchanged and likely represent metastatic disease. No evidence of hepatic abscess. No pathologically dilated loops of small or large bowel to suggest adynamic ileus or mechanical obstr uction. No hydronephrosis, nephrolithiasis or renal mass. A round hypodensity in the left kidney is unchanged and likely represents benign cyst. The urinary bladder is normal volume. The pancreas, adrenal glands, and spleen are normal. The main portal vein is compressed by extraluminal lymphadenopathy just downstream from the confluenc e of the mesenteric and splenic vein. The portal vein remains patent. Bibasilar atelectasis, worse right than left, and small dependent right pleural effusion. Impression: 1. No pneumoperitoneum or evidence of perforated bowel. 2. Moderate ascites and presumed loculated component of ascites along the posterior surface of the st omach. 3. No definite abscess 4. Worsening biliary dilation due to confluent lymphadenopathy at the roxana hepatis and mesenteric ro ot. Perhaps the biliary tract is superinfected. 5. Presumed metastatic liver disease unchanged. 6. Peritoneal carcinomatosis and lymphadenopathy worse since October 2016. 7. No evidence of bowel obstruction or adynamic ileus. 8. Gallbladder sludge versus hemorrhage.
[2016-11-15] MEDS: OLANZapine DISINTEGR 5 MG TAB PO SCH (22:05)
[2016-11-16] MEDS: PIPERACILLIN NA/TAZO 4.5 GM in D5W 100 ML IV SCH ×5 (00:26→23:55)
[2016-11-16 05:52] LABS: ADD DIFF? YES; ADD MORPH? NO; ADD SCAN? NO; ATYPICAL LYMPHOCYTE FLAG 0 (0-99); FRAGMENT RBC FLAG 0 (0-99); HEMATOCRIT 40.9 % (40.0-51.0); HEMOGLOBIN 13.7 g/dL (13.7-17.5); LEFT SHIFT FLG 10 (0-99); LIPEMIA HEMOLYSIS FLAG 80 (0-99); MEAN CELL HEMOGLOBIN 28.1 pg (27.9-34.1); MEAN CELL HEMOGLOBIN CONCENTR. 33.5 g/dL (32.4-36.7); MEAN PLATELET VOLUME 10.3 fL (8.7-11.7); PLATELET CLUMPS FLAG 0 (0-99); PLATELET COUNT 538 10^3/uL (150-400); RED BLOOD CELL COUNT 4.87 10^6/uL (4.40-6.38); RED CELL DISTRIBUTION WIDTH 16.2 % (11.5-15.2)
[2016-11-16 05:57] LABS: ALANINE AMINOTRANSFERASE 107 IU/L (21-72); ALBUMIN 2.5 g/dL (3.5-5.0); ALKALINE PHOSPHATASE 692 IU/L (38-126); ANION GAP 9 mEq/L (8-16); ASPARTATE AMINOTRANSFERASE 159 IU/L (17-59); BILIRUBIN,TOTAL 10.7 mg/dL (0.1-1.4); CALCIUM 8.4 mg/dL (8.5-10.4); CARBON DIOXIDE 24 mEq/l (22-31); CHLORIDE 96 mEq/L (97-110); CREATININE 0.8 mg/dL (0.7-1.3); GLOMERULAR FILTRATION RATE > 60; GLUCOSE 131 mg/dL (70-100); POTASSIUM 5.1 mEq/L (3.5-5.2); SODIUM 129 mEq/L (134-144); TOTAL PROTEIN 5.2 g/dL (6.3-8.2)
[2016-11-16 06:31] LABS: MACROCYTES 1+; PLATELET ESTIMATE INCREASED (ADEQ)
[2016-11-16] MEDS: oxyCODONE IR 5 MG TAB PO PRN ×4 (06:33→20:35)
[2016-11-16 06:46] LABS: BILIRUBIN-CONJUGATED 9.3 mg/dL (0.0-0.5); BILIRUBIN-UNCONJUGATED 1.4 mg/dL (0.0-1.1)
[2016-11-16] MEDS: PROMETHAZINE HCL 25 MG/ML VIAL IVP PRN ×2 (08:26→16:36)
[2016-11-16] MEDS: ASPIRIN EC 81 MG TAB PO SCH (08:28)
[2016-11-16] MEDS: PANTOPRAZOLE SODIUM 40 MG TAB PO SCH ×2 (08:28→20:36)
[2016-11-16] MEDS: FUROSEMIDE 40 MG TAB PO SCH (08:29)
[2016-11-16] MEDS: SENNOSIDES/DOCUSATE SODIUM TAB PO SCH ×2 (08:29→20:36)
[2016-11-16] MEDS: ASCORBIC ACID 500 MG TAB PO SCH (08:29)
[2016-11-16] MEDS: NICOTINE 14 MG/24 HR PATCH TD SCH (08:33)
[2016-11-16] MEDS: LACTULOSE 20 GM/30 ML UDCUP PO SCH ×3 (08:34→20:45)
[2016-11-16] MEDS: ENOXAPARIN 40 MG/0.4 ML SYR SC SCH (08:39)
--- NOTE | 2016-11-16 12:00 | HOSPPROG ---
Hospitalist Progress Note Assessment/Plan: 56-year-old male with known metastatic adenocarcinoma. Patient is new to me today. Today the patient complains of abdominal pain and weakness. Per Dr. Ac's note from 11/[address] scan has been interpreted and a repeat CBC shows a rising white count. His he is afebrile. A paracentesis was performed yesterday with removal of 1 L of fluid. No bacteria were seen and a culture is pending. CT scan showed no evidence of an obstruction or abscess. The scan does show worsening biliary obstruction and an enlarged metastatic lesion in the left lobe of the liver. -acute biliary obstruction, worsening since prior study of 10/27/2016. There is a rising bili Crocker and LFTs. CT scan shows the obstruction is worsening and there is possible evidence of bili of gallbladder disease with haziness and fluid about the gallbladder. -acute spontaneous bacterial peritonitis. This is currently under treatment with Zosyn. It had previously been treated with Rocephin. The patient is afebrile with an elevated white count and persistent pain. -metastatic adenocarcinoma. -chronic pain with continuous opioid dependency: We will continue to treat pain as needed. -acute hyponatremia which is now persistent with a sodium of approximately 130. This is secondary to his use of free water and liver disease. -Acute schizophrenic disorder. Stable -systemic inflammatory response syndrome -cirrhosis Plan: We will continue to use Zosyn for his S BP, watch the CBC and white count , and consult further with the patient's as to his desires for further treatment. It is possible on review of the CT scan that he has acute gallbladder disease as there is considerable fluid and haziness around the gallbladder. The exact origin of his obstruction cannot be discerned but it is clearly worsening on CT scan and liver function tests and bilirubin rising. The size of the metastatic disease in his liver is also increased since 2015. It seems that the best approach here would be to complete family matters , discharge the patient to [facility] if possible, and place a drain following the completion of his treatment for his SBP. I will discuss this with case management tomorrow. Disposition: Possible discharge to [facility] tomorrow. Repeat CBC and BMP Subjective: Reports feelings of pain and discomfort. He is able to eat and is moving his bowels. Abdominal pain is approximately the same as it was yesterday. No chest pain or shortness of breath Objective: Vital Signs Temp Pulse Resp BP Pulse Ox 36.6 C 98 18 128/71 H 88 L 11/16/16 08:00 11/16/16 08:00 11/16/16 08:00 11/16/16 08:00 11/16/16 08:00 Microbiology 11/15/16 17:15 Gram Stain - Final Peritoneal Fluid - Aspirate Laboratory Results 11/16/16 04:48 11/16/16 04:48 11/15/16 11/16/16 11/17/16 05:59 05:59 05:59 Intake Total 1500 500 200 Output Total 2300 250 Balance -800 250 200 PT 16.8 SEC (12.0-15.0) H 11/15/16 12:45 INR 1.36 (0.83-1.16) H 11/15/16 12:45 Laboratory Tests 11/10/16 11/11/16 11/13/16 13:25 05:30 10:39 WBC 16.66 H 19.56 H Sodium 130 L Potassium 4.6 Total Bilirubin 7.6 H AST 84 H ALT 75 H Alkaline Phosphatase 347 H 11/14/16 11/15/16 11/16/16 08:01 12:45 04:48 WBC 23.00 H 28.77 H 25.87 H Sodium 129 L Potassium 5.1 Total Bilirubin 10.7 H AST 159 H ALT 107 H Alkaline Phosphatase 692 H - Time Spent With Patient Time Spent with Patient: greater than 35 minutes Time Spent with Patient: Greater than 35 minutes spent on this patients care, greater than 50% of time spent counseling, educating, and coordinating care regarding the above mentioned plan. - Physical Exam Constitutional: chronically ill appearing, cachectic Eyes: icteric sclera Ears, Nose, Mouth, Throat: hearing normal, poor dentition, dry mucous membranes Cardiovascular: regular rate and rhythym, no murmur, rub, or gallop Respiratory: no respiratory distress, no rales or rhonchi Gastrointestinal: tenderness, ascites, distension Genitourinary: no bladder fullness Skin: warm Musculoskeletal: generalized weakness Neurologic: AAOx3, CN II-XII Intact Psychiatric: interacting appropriately ICD10 Worksheet Patient Problems: Problems Problem Status Diagnosed Abdominal pain Acute Carcinomatosis Acute
[2016-11-16] MEDS: OLANZapine DISINTEGR 5 MG TAB PO SCH (20:47)
[2016-11-16] MEDS: LORazepam 2 MG/ML INJ IVP PRN (22:08)
[2016-11-16] MEDS: HYDROmorphONE/DILAUDID 1 MG/ML SYR IVP PRN (22:08)
[2016-11-17] MEDS: ONDANSETRON DISINTEGRATING 4 MG TAB PO PRN ×2 (01:47→05:59)
[2016-11-17] MEDS: oxyCODONE IR 5 MG TAB PO PRN ×3 (01:47→09:12)
[2016-11-17 05:13] LABS: ADD DIFF? YES; ADD MORPH? NO; ATYPICAL LYMPHOCYTE FLAG 0 (0-99); FRAGMENT RBC FLAG 0 (0-99); HEMATOCRIT 44.6 % (40.0-51.0); HEMOGLOBIN 14.9 g/dL (13.7-17.5); LEFT SHIFT FLG 20 (0-99); LIPEMIA HEMOLYSIS FLAG 80 (0-99); MEAN CELL HEMOGLOBIN 28.8 pg (27.9-34.1); MEAN CELL HEMOGLOBIN CONCENTR. 33.4 g/dL (32.4-36.7); MEAN CELL VOLUME 86.1 fL (81.5-99.8); MEAN PLATELET VOLUME 10.3 fL (8.7-11.7); PLATELET CLUMPS FLAG 0 (0-99); PLATELET COUNT 581 10^3/uL (150-400); RED BLOOD CELL COUNT 5.18 10^6/uL (4.40-6.38); RED CELL DISTRIBUTION WIDTH 16.1 % (11.5-15.2)
[2016-11-17 05:21] LABS: ADD SCAN? NO
[2016-11-17 05:31] LABS: ALANINE AMINOTRANSFERASE 119 IU/L (21-72); ALBUMIN 2.6 g/dL (3.5-5.0); ALKALINE PHOSPHATASE 933 IU/L (38-126); ANION GAP 11 mEq/L (8-16); ASPARTATE AMINOTRANSFERASE 195 IU/L (17-59); BILIRUBIN,TOTAL 12.2 mg/dL (0.1-1.4); CALCIUM 8.8 mg/dL (8.5-10.4); CARBON DIOXIDE 22 mEq/l (22-31); CHLORIDE 95 mEq/L (97-110); GLOMERULAR FILTRATION RATE > 60; GLUCOSE 126 mg/dL (70-100); POTASSIUM 5.7 mEq/L (3.5-5.2); SODIUM 128 mEq/L (134-144); TOTAL PROTEIN 5.5 g/dL (6.3-8.2)
[2016-11-17 05:37] LABS: BILIRUBIN-UNCONJUGATED 1.2 mg/dL (0.0-1.1)
[2016-11-17] MEDS: PIPERACILLIN NA/TAZO 4.5 GM in D5W 100 ML IV SCH ×3 (05:52→18:48)
[2016-11-17 05:58] LABS: PLATELET ESTIMATE INCREASED (ADEQ)
[2016-11-17] MEDS: fentaNYL 12 MCG PATCH TD SCH (09:11)
[2016-11-17] MEDS: fentaNYL 25 MCG PATCH TD SCH (09:12)
[2016-11-17] MEDS: ASPIRIN EC 81 MG TAB PO SCH (09:16)
[2016-11-17] MEDS: ASCORBIC ACID 500 MG TAB PO SCH (09:16)
[2016-11-17] MEDS: LACTULOSE 20 GM/30 ML UDCUP PO SCH ×3 (09:17→20:03)
[2016-11-17] MEDS: ENOXAPARIN 40 MG/0.4 ML SYR SC SCH (09:17)
[2016-11-17] MEDS: NICOTINE 14 MG/24 HR PATCH TD SCH (09:22)
[2016-11-17] MEDS: PANTOPRAZOLE SODIUM 40 MG TAB PO SCH ×2 (09:23→23:52)
[2016-11-17] MEDS: FUROSEMIDE 40 MG TAB PO SCH (09:23)
[2016-11-17] MEDS: SENNOSIDES/DOCUSATE SODIUM TAB PO SCH ×2 (09:25→20:04)
[2016-11-17] MEDS ORDERED: fentaNYL 25 MCG PATCH TD SCH (11:03)
--- NOTE | 2016-11-17 11:07 | SOAPPROG ---
SOAP Progress Note Assessment/Plan: Assessment: 1. Metastatic adenocarcinona - upper GI 2. Obstructive jaundice due to tumor 3. Vomiting 4. Bacterial peritonitis This patient's prognosis is very poor, given that he has a very aggressive malignancy, very poor performance status, hepatic dysfunction, and abdominal infection. The most appropriate course of action is hospice / comfort measures only. It is reasonable to continue antibiotics for now, but I do not advocate any more aggressive efforts to evaluate or treat the infection (eg gallbladder drains, etc.) Such interventions will not change the overall outcome and will probably cause the patient more discomfort than they are worth. Similarly, I don't think that a Dougherty drain is going to be particularly helpful right now - it would be simpler and more effective to treat his pain with narcotics and other adjunctive medications. Plan: - increase fentanyl patch - will use Roxanol instead of oxycodone tabs, since he is vomiting the pills up - continue abx for now but would plan to discontinue upon discharge - his brother/MPOA is arriving tomorrow; would keep pt in hospital til then but then arrange for discharge, either to [facility] w/ hospice or the inpatient hospice unit. 35 min spent w/ pt and in coordination of care. 11/17/16 11:04 11/17/16 11:07 Subjective: feels weak. not eating anything. intermittent pain in abdomen. Objective: exam: cachectic, jaundiced abd markedly distended. no rebound or focal tenderness Ext: 1+ edema neuro: tired but a+o3. Vital Signs Temp Pulse Resp BP Pulse Ox 36.5 C 120 H 20 142/103 H 90 L 11/17/16 08:00 11/17/16 08:00 11/17/16 08:00 11/17/16 08:00 11/17/16 08:00 Microbiology 11/15/16 17:15 Gram Stain - Final Peritoneal Fluid - Aspirate Laboratory Results 11/17/16 04:46 11/17/16 04:46 11/16/16 11/17/16 11/18/16 05:59 05:59 05:59 Intake Total 500 2461 Output Total 250 300 Balance 250 2161 PT 16.8 SEC (12.0-15.0) H 11/15/16 12:45 INR 1.36 (0.83-1.16) H 11/15/16 12:45 ICD10 Worksheet Patient Problems: Problems Problem Status Diagnosed Abdominal pain Acute Carcinomatosis Acute
[2016-11-17] MEDS: morphINE 10 MG/0.5 ML UDSYR PO PRN ×2 (12:23→20:00)
[2016-11-17] MEDS: PROMETHAZINE HCL 25 MG/ML VIAL IVP PRN (12:24)
--- NOTE | 2016-11-17 14:38 | HOSPPROG ---
Hospitalist Progress Note Assessment/Plan: 56-year-old male with known metastatic adenocarcinoma. Today the patient complains of abdominal pain and weakness. Per Dr. Ac's note from 11/[address] scan has been interpreted and a repeat CBC shows a rising white count. His he is afebrile. A paracentesis was performed 11/15with removal of 1 L of fluid. No bacteria were seen and a culture is pending. CT scan showed no evidence of an obstruction or abscess. The scan does show worsening biliary obstruction and an enlarged metastatic lesion in the left lobe of the liver. todAY the WBC is elevated, he is afebrile. discussed with Oncology -acute biliary obstruction, worsening since prior study of 10/27/2016. There is a rising bili Crocker and LFTs. CT scan shows the obstruction is worsening and there is possible evidence of bili of gallbladder disease with haziness and fluid about the gallbladder. -acute spontaneous bacterial peritonitis. This is currently under treatment with Zosyn. It had previously been treated with Rocephin. The patient is afebrile with an elevated white count and persistent pain. -metastatic adenocarcinoma. -chronic pain with continuous opioid dependency: We will continue to treat pain as needed. -acute hyponatremia which is now persistent with a sodium of approximately 130. This is secondary to his use of free water and liver disease. -Acute schizophrenic disorder. Stable -systemic inflammatory response syndrome -cirrhosis Plan: We will continue to use Zosyn for his S BP, watch the CBC and white count , and consult further with the patient's as to his desires for further treatment. I discussed the planned treatment with Dr. Staton with Oncology. Is clear after reviewing his CT scan and with his elevating white count that there is little we can do for this gentleman at this point. His cancer is aggressive and untreatable. The biliary obstruction is secondary to metastatic disease. Thus will continue his antibiotics for his treatment course and then stop aggressive treatment at that point. Oncology does not feel that any in further intervention is warranted necessary or useful. Disposition: The patient is matter MPOA is to be present tomorrow and we will discuss treatment plans and disposition at that point. Patient is DNR Subjective: No complaints he continues to eat and move his bowels. He continues to feel weak Objective: Vital Signs Temp Pulse Resp BP Pulse Ox 36.5 C 120 H 20 142/103 H 90 L 11/17/16 08:00 11/17/16 08:00 11/17/16 08:00 11/17/16 08:00 11/17/16 08:00 Microbiology 11/15/16 17:15 Gram Stain - Final Peritoneal Fluid - Aspirate Laboratory Results 11/17/16 04:46 11/17/16 04:46 11/16/16 11/17/16 11/18/16 05:59 05:59 05:59 Intake Total 500 2461 Output Total 250 300 Balance 250 2161 PT 16.8 SEC (12.0-15.0) H 11/15/16 12:45 INR 1.36 (0.83-1.16) H 11/15/16 12:45 - Time Spent With Patient Time Spent with Patient: greater than 35 minutes Time Spent with Patient: Greater than 35 minutes spent on this patients care, greater than 50% of time spent counseling, educating, and coordinating care regarding the above mentioned plan. - Physical Exam Constitutional: chronically ill appearing, cachectic Eyes: PERRL, icteric sclera Ears, Nose, Mouth, Throat: moist mucous membranes, hearing normal Cardiovascular: regular rate and rhythym, no murmur, rub, or gallop, tachycardia Respiratory: no respiratory distress Gastrointestinal: normoactive bowel sounds, tenderness, ascites, distension Genitourinary: no bladder fullness Skin: warm Musculoskeletal: generalized weakness Neurologic: AAOx3, CN II-XII Intact Psychiatric: interacting appropriately ICD10 Worksheet Patient Problems: Problems Problem Status Diagnosed Abdominal pain Acute Carcinomatosis Acute
[2016-11-17] MEDS: HYDROmorphONE/DILAUDID 1 MG/ML SYR IVP PRN (14:51)
[2016-11-17] MEDS: LORazepam 2 MG/ML INJ IVP PRN (20:00)
[2016-11-17] MEDS: OLANZapine DISINTEGR 5 MG TAB PO SCH (20:03)
[2016-11-18] MEDS: morphINE 10 MG/0.5 ML UDSYR PO PRN ×8 (00:28→17:45)
[2016-11-18] MEDS: PIPERACILLIN NA/TAZO 4.5 GM in D5W 100 ML IV SCH ×3 (01:10→12:48)
[2016-11-18] MEDS: HYDROmorphONE/DILAUDID 1 MG/ML SYR IVP PRN (01:49)
[2016-11-18] MEDS: HALOPERIDOL LACT 5 MG/ML INJ IVP PRN ×2 (01:49→16:02)
[2016-11-18] MEDS: PROMETHAZINE HCL 25 MG/ML VIAL IVP PRN ×3 (02:56→17:45)
[2016-11-18 05:49] LABS: ANION GAP 16 mEq/L (8-16); CALCIUM 8.7 mg/dL (8.5-10.4); CARBON DIOXIDE 19 mEq/l (22-31); CHLORIDE 96 mEq/L (97-110); CREATININE 2.1 mg/dL (0.7-1.3); GLOMERULAR FILTRATION RATE 33; GLUCOSE 162 mg/dL (70-100); POTASSIUM 5.6 mEq/L (3.5-5.2); SODIUM 131 mEq/L (134-144)
[2016-11-18 05:53] LABS: ADD DIFF? YES; ADD MORPH? NO; ATYPICAL LYMPHOCYTE FLAG 0 (0-99); FRAGMENT RBC FLAG 10 (0-99); HEMOGLOBIN 15.7 g/dL (13.7-17.5); LEFT SHIFT FLG 20 (0-99); LIPEMIA HEMOLYSIS FLAG 80 (0-99); MEAN CELL HEMOGLOBIN CONCENTR. 33.4 g/dL (32.4-36.7); MEAN CELL VOLUME 86.7 fL (81.5-99.8); MEAN PLATELET VOLUME 10.5 fL (8.7-11.7); PLATELET CLUMPS FLAG 0 (0-99); PLATELET COUNT 586 10^3/uL (150-400); RED BLOOD CELL COUNT 5.42 10^6/uL (4.40-6.38); RED CELL DISTRIBUTION WIDTH 16.4 % (11.5-15.2)
[2016-11-18 05:54] LABS: ADD SCAN? NO
[2016-11-18] MEDS: ONDANSETRON 4 MG/2 ML VIAL IVP PRN ×2 (06:26→11:30)
[2016-11-18 06:42] LABS: LARGE PLATELETS PRESENT; PLATELET ESTIMATE INCREASED (ADEQ)
[2016-11-18 08:06] VITALS: O2SAT 91
--- NOTE | 2016-11-18 11:11 | SOAPPROG ---
SOAP Progress Note Assessment/Plan: Assessment: 1. Metastatic adenocarcinona - upper GI - rapidly progressive 2. Obstructive jaundice due to tumor 3. Vomiting 4. Bacterial peritonitis 5. Renal failure I think the patient is within days to a couple of weeks of . His ECOG performance status is 4. He has rapidly accumulating ascites and intractable nausea. He is not a candidate for cytotoxic chemo. I think the most appropriate course of action would be referral to inpatient hospice. His level of care needed exceeds what can be handled in a SNF setting. I discussed this with the patient. I would take my guidance from Hospice as to whether or not the wish to have a venting gastrotomy tube or a [place] drain placed prior to D/C. Plan: - continue fentanyl patch - continue roxanol - continue abx for now but would plan to discontinue upon discharge - his brother/MPOA is arriving today; tentative Hospice consult later this afternoon. Subjective: More comfortable laying on R side. Frequent nausea and vomiting. Objective: Vital Signs Temp Pulse Resp BP Pulse Ox 36.9 C 119 H 22 H 121/76 H 91 L 11/18/16 05:51 11/18/16 08:05 11/18/16 08:05 11/18/16 08:05 11/18/16 08:05 Microbiology 11/15/16 17:15 Gram Stain - Final Peritoneal Fluid - Aspirate Laboratory Results 11/18/16 05:27 11/18/16 05:27 11/16/16 11/17/16 11/18/16 23:59 23:59 23:59 Intake Total 1750 1411 1079 Output Total 300 1100 2400 Balance 1450 311 -1321 PT 16.8 SEC (12.0-15.0) H 11/15/16 12:45 INR 1.36 (0.83-1.16) H 11/15/16 12:45 Physical Exam - Physical Exam General Appearance: moderate distress EENT: scleral icterus (R), scleral icterus (L) Respiratory: decreased breath sounds Cardiac/Chest: regular rate, rhythm Abdomen: distended, ascites Skin: jaundice Neuro/Psych: depressed affect ICD10 Worksheet Patient Problems: Problems Problem Status Diagnosed Abdominal pain Acute Carcinomatosis Acute
--- NOTE | 2016-11-18 15:50 | GDS ---
[f rep st] DISCHARGE SUMMARY NEW AND ACUTE DIAGNOSES ON THIS ADMISSION: 1. Acute biliary obstruction, secondary to metastatic spread of adenocarcinoma. 2. Spontaneous bacterial peritonitis, treated with Rocephin and completed an antibiotic course. Brandy sheikh is afebrile, but a rising white count. 3. Metastatic adenocarcinoma, aggressive and untreatable. 4. Chronic pain with continuous opioid dependency. 5. Chronic hyponatremia, secondary to free water ingestion and liver disease. 6. Schizophrenic disorder, stable. 7. Systemic inflammatory response syndrome and sepsis syndrome present on admission. 8. Cirrhosis. CONSULTATIONS: Oncology and Palliative Care consultation, and Hospice Care consultation. PROCEDURES: Paracentesis and ultrasound of the abdomen with removal of 5 L of ascitic fluid. The pa racentesis was done x3. Abdominal CT scan with the finding of moderate ascites and presumed loculate d component of ascites in the posterior surface of the stomach. No definitive abscess. Worsening bi liary dilation due to confluent lymphadenopathy at the roxana hepaticus and mesenteric root. It is po ssible from this scan that the biliary tract is superinfected. There has been advancement of the kno wn metastatic disease with increased growth in the left lobe of the liver. Peritoneal carcinomatosis and lymphadenopathy are worse since the prior CT scan done in October 2016. There was no evidence of a bowel obstruction. HOSPITAL COURSE: This is a 56-year-old who had a recent diagnosis of adenocarcinoma, presented with a distended abdomen. He also had on presentation nausea and vomiting with elevated LFTs. Hyponatre samson was noted. Following admission, he underwent paracentesis x3 for relief of his ascites. CT scan showed evidence of significant carcinomatosis and adenopathy about the biliary tree. He was noted t o have biliary dilation and abnormal liver function tests. Palliative Care consultation was performe d and it was felt that the gentleman's adenocarcinoma was highly aggressive and currently untreatable per Oncology, and we had little further medically to offer the gentleman other than comfort measures . A hospice Care consultation occurred and the gentleman agreed to hospice care. He is being discha rged to [facility]. DISCHARGE MEDICATIONS: Fentanyl Duragesic patch 25 mcg patch, MiraLAX 17 g p.o. p.r.n., a nicotine p atch 14 mg daily, Milk of magnesia 30 mL p.o. p.r.n., Ativan 1 mg p.o. q.4 hours p.r.n. anxiety, Linda anol 10 mg per 0.5 mL 10 mg p.o. q.2 hours p.r.n., Senokot S 1-2 tablets p.o. b.i.d., Protonix 40 mg b.i.d., Zofran 4 mg p.o. p.r.n., Zyprexa 5 mg p.o. q.h.s., Lasix 40 mg daily. PLAN: The gentleman is transferred to [facility] inpatient facility. We have spoken with his brother, who has come here to be with him and manage his personal belongings. TIME: This discharge required 65 minutes, greater than 50% to family life counselor and coordinate care. /[id number]/MODL
[2016-11-18 15:51] VITALS: BP 109/73; PULSE 121; RESP 20; TEMP 98.1
--- NOTE | 2016-11-18 15:56 | PDIAF ---
- Diagnosis Code Status: Do Not Resuscitate - Medication Management Discharge Medications: Medications to Continue on Transfer Nicotine [Nicoderm Cq 14 mg (*)] 14 mg TD DAILY PRN #0 patch 11/01/16 [Last Taken Unknown] Polyethylene Glycol 3350 [Miralax 17 gm (*)] 17 gm PO DAILY PRN #0 pkt 11/01/16 [Last Taken Unknown] fentaNYL [Duragesic 25 MCG Patch (*)] 25 mcg TD Q72H #0 patch 11/01/16 [Last Taken Unknown] Magnesium Hydroxide [Milk of Magnesia] 30 ml PO DAILY PRN 11/07/16 [Last Taken Unknown] Furosemide [Lasix 40 MG (*)] 40 mg PO DAILY 7 Days 11/18/16 [Last Taken Unknown] HYDROmorphone HCL [Dilaudid] 0.2 - 0.4 mg IVP Q4HRS PRN #0 syr 11/18/16 [Last Taken Unknown] Haloperidol Lactate [Haldol Injection] 1 - 2 mg IVP Q6HRS PRN #0 inj 11/18/16 [ Last Taken Unknown] LORazepam [Ativan inj 2 mg/ml (*)] 0.5 - 1 mg IVP Q8HRS PRN #0 inj 11/18/16 [ Last Taken Unknown] Lorazepam [Ativan] 1 mg PO Q4 PRN #30 tablet 11/18/16 [Last Taken Unknown] Nicotine [Nicoderm Cq 14 mg (*)] 14 mg TD DAILY #0 patch 11/18/16 [Last Taken Unknown] OLANZapine DISINTEGR [ZyPREXA ZYDIS (*)] 5 mg PO HS 7 Days 11/18/16 [Last Taken Unknown] Ondansetron Odt [Zofran Odt 4 mg (*)] 4 mg PO Q4HRS PRN 7 Days 11/18/16 [Last Taken Unknown] Pantoprazole Sodium [Protonix 40mg (*)] 40 mg PO BID #0 tab 11/18/16 [Last Taken Unknown] Polyethylene Glycol 3350 [Miralax 17 gm (*)] 17 gm PO DAILY PRN #0 pkt 11/18/16 [Last Taken Unknown] Sennosides/Docusate Sodium [Senokot-S] 1 - 2 tab PO BID 7 Days 11/18/16 [Last Taken Unknown] fentaNYL [Duragesic 25 MCG Patch (*)] 50 mcg TD Q3D 7 Days 11/18/16 [Last Taken Unknown] morphINE [Roxanol 10 mg/0.5 ml oral soln (*)] 10 mg PO Q2HRS PRN #0 udsyr [Last Taken Unknown] Discharge Medications: Refer to the Discharge Home Medication list for PRN reason. - Orders Services needed: Registered Nurse Diet Recommendation: no restrictions on diet Diet Texture: Regular Texture Diet - Follow Up Care Current Providers and Referrals: Nimisha Cardenas MD [Primary Care Provider] -
== END 2016-11-18 18:08 | disposition hospice, home (50) | DRG 871 ==
LOC: RMCCLAB 12:11 → EDSTATUS 13:33 → INTOOBSV 13:49 → F1N 13:49 → OBSVTOIN 11-08 15:54
PROVIDERS: ADMIT Internal Medicine; ATTEND Internal Medicine
PROC: 0W9G30Z Drainage of Peritoneal Cavity with Drainage Device, Percutaneous Approach (ICD-10-PCS; principal; 2016-11-10)
PROC: 0W9G30Z Drainage of Peritoneal Cavity with Drainage Device, Percutaneous Approach (ICD-10-PCS; 2016-11-12)
PROC: 0W9G30Z Drainage of Peritoneal Cavity with Drainage Device, Percutaneous Approach (ICD-10-PCS; 2016-11-15)
DX: A41.9 Sepsis, unspecified organism (principal); K83.1 Obstruction of bile duct; K65.2 Spontaneous bacterial peritonitis; E87.1 Hypo-osmolality and hyponatremia; R18.8 Other ascites; E43 Unspecified severe protein-calorie malnutrition; C26.9 Malignant neoplasm of ill-defined sites within the digestive system; C78.7 Secondary malignant neoplasm of liver and intrahepatic bile duct; C77.9 Secondary and unspecified malignant neoplasm of lymph node, unspecified; G89.29 Other chronic pain; F11.20 Opioid dependence, uncomplicated; F25.9 Schizoaffective disorder, unspecified; F17.210 Nicotine dependence, cigarettes, uncomplicated; Z51.5 Encounter for palliative care; Z66 Do not resuscitate
CPT/HCPCS: G0378; J0696; J1170; J1650; J2405; J2543; J2550; P9047; Q9967